=== PATIENT | male | born 1955 | race Caucasian/White ===

== ENCOUNTER → 2019-04-19 | Outpatient (CLI) | payer OTHER ==
[2019-04-19 11:49] LABS: HCT 37.8 % (39.0-53.0); HGB 13.3 gm/dL (13.0-17.5); MCH 29.8 pg (25.0-35.0); MCHC 35.3 g/dL (31.0-37.0); MCV 84.5 fL (80.0-100.0); Mean Platelet Volume 8.5; Platelet Count 213 k/uL (150-450); RBC 4.47 m/uL (4.30-5.90); RDW 14.2 % (11.5-15.5); WBC 9.1 k/uL (3.8-10.6)
[2019-04-19 12:01] LABS: Potassium 4.2 mmol/L (3.5-5.1)
== END | disposition home or self-care (01) ==
LOC: LABPAT 10:34
PROVIDERS: ATTEND Internal Medicine Interventional Cardiology
DX: Z01.812 Encounter for preprocedural laboratory examination (principal); I25.10 Atherosclerotic heart disease of native coronary artery without angina pectoris
CPT/HCPCS: 36415; 80051; 82565; 84520; 85027

== ENCOUNTER 2019-04-22 10:17 | Day surgery (SDC) | payer OTHER ==
[~2019-04-22 10:17] MED LIST: ALPRAZolam 0.25 MG TAB PO PRN; ALPRAZolam 0.5 MG TAB PO PRN; ASPIRIN 325 MG TAB PO ONE; ATORVASTATIN 80 MG TAB PO ONE; NITROGLYCERIN SL TABS 0.4 MG TAB SUBLINGUAL PRN; SODIUM CHLORIDE 0.9% 1,000 ML in EMPTY BAG 1 BAG IV ONE
[2019-04-22 10:53] LABS: Glucose,Whole Blood 207 mg/dL (75-99)
[2019-04-22] MEDS ORDERED: VERAPAMIL 2.5 MG/ML 2 ML AMP ONE (12:26)
[2019-04-22] MEDS ORDERED: LIDOCAINE 1% INJ 10MG/ML (20 ML MDV) ONE (12:26)
[2019-04-22] MEDS ORDERED: MIDAZOLAM (PF) 2 MG/2 ML VIAL IVP ONE (12:40)
[2019-04-22] MEDS ORDERED: LIDOCAINE 1% INJ 10MG/ML (20 ML MDV) SQ ONE (12:43)
[2019-04-22] MEDS: VERAPAMIL SYRINGE (5 MG/10 ML) INTRAARTER ONE ×2 (12:45→13:30)
[2019-04-22] MEDS ORDERED: HYDROmorphone 1 MG/ML 1 ML SYRINGE ONE (12:47)
[2019-04-22] MEDS ORDERED: BIVALIRUDIN 250 MG in SODIUM CHLORIDE 0.9% 50 ML IV ONE ×2 (12:48→13:18)
[2019-04-22] MEDS ORDERED: BIVALIRUDIN BOLUS 250 MG/50 ML IV ONE (12:48)
[2019-04-22] MEDS ORDERED: HYDROmorphone 1 MG/ML 1 ML SYRINGE IVP ONE (12:54)
[2019-04-22] MEDS ORDERED: CLOPIDOGREL 75 MG TAB ONE (12:58)
[2019-04-22] MEDS ORDERED: CLOPIDOGREL 75 MG TAB PO ONE (13:00)
[2019-04-22] MEDS ORDERED: IOPAMIDOL-370 125ML BTL INJ ONE (13:17)
[2019-04-22] MEDS ORDERED: NITROGLYCERIN 1000MCG/10ML SYRINGE INTRACORON ONE (13:28)
[2019-04-22] MEDS ORDERED: IOPAMIDOL-370 100ML BTL INJ ONE (13:30)
[2019-04-22] MEDS ORDERED: IBUPROFEN 600 MG TAB PO PRN (13:36)
[2019-04-22] MEDS ORDERED: ACETAMINOPHEN TAB 500 MG TAB PO PRN (13:36)
[2019-04-22] MEDS ORDERED: ZOLPIDEM 5 MG TAB PO PRN (13:37)
[2019-04-22] MEDS ORDERED: RX INFO: IV CONTRAST WAS GIVEN 1 EACH MISC MISCELLANE PRN (13:37)
[2019-04-22] MEDS ORDERED: ATROPINE SULFATE 0.1 MG/ML 10ML SYRINGE IV PRN (13:37)
[2019-04-22] MEDS ORDERED: MAG HYDROX/AL HYDROX/SIMETH 30 ML CUP PO PRN (13:37)
[2019-04-22] MEDS ORDERED: NITROGLYCERIN SL TABS 0.4 MG TAB SUBLINGUAL PRN (13:37)
[2019-04-22] MEDS ORDERED: SODIUM CHLORIDE 0.9% 1,000 ML IV SCH (13:45)
[2019-04-22] MEDS ORDERED: hydrALAZINE HCL 20 MG/ML 1 ML VIAL ONE (14:54)
[2019-04-22] MEDS ORDERED: hydrALAZINE HCL 20 MG/ML 1 ML VIAL IVP STA (14:56)
[2019-04-22 17:04] LABS: Glucose,Whole Blood 197 mg/dL (75-99)
[2019-04-22] MEDS: CARVEDILOL 12.5 MG TAB PO SCH (17:22)
[2019-04-22] MEDS: INSULIN ASPART (NovoLOG) 100 UNIT/ML VIAL SQ SCH (17:22)
[2019-04-22] MEDS: hydrALAZINE HCL 25 MG TAB PO SCH ×2 (19:34→23:12)
[2019-04-22 19:43] LABS: Glucose,Whole Blood 239 mg/dL (75-99)
--- NOTE | 2019-04-22 20:12 | PTCA ---
PERCUTANEOUSTRANS CORORONARY ANGIOGRAPHY DATE OF SERVICE: April 22, 2019 PERFORMING PHYSICIAN: Abhi Stephens MD, tenant coordinator. PROCEDURE PERFORMED: 1. Successful stenting of the mid RCA using 3.0 x 18 and 3.0 x 12 mm Xience drug- eluting stents, which were post dilated using 3.5 mm balloon with an excellent angiographic results and reduction of stenosis from 99% to 0%. 2. Successful stenting of the mid LAD using 3.25 x 15 mm Xience drug-eluting stent with an excellent angiographic results and reduction of stenosis from 99% to 0%. INDICATIONS: This is a pleasant 63-year-old gentleman with diabetes, hypertension, and dyslipidemia, who was experiencing shortness of breath and chest discomfort with exertion concerning for severe underlying coronary artery disease. He underwent an echocardiogram which revealed cardiomyopathy. Because of that, he underwent a heart catheterization and that revealed severe triple-vessel coronary artery disease. The patient referred and was seen by cardiothoracic surgeon who turned the patient high risk for surgery. Because of that, he was brought today to undergo PCI of the RCA and LAD. APPROACH: Right radial artery. COMPLICATION: None. LEVEL OF SEDATION: Moderate with sedation length of 53 minutes. PROCEDURE DESCRIPTION: After obtaining informed consent, the patient was brought to cardiac hatchery laborer. The right radial artery was cannulated using micropuncture technique, the micropuncture wire passed easily. Then I placed a 6-Malay sheath 11 cm in the right radial artery. After that, I did start anticoagulation using Angiomax. Subsequently I did engage the RCA using JR4 guide. I wired using a run-through wire. After that, I did PTCA ballooning of the RCA using 2.5 x 12 mm balloon before I deployed 3.0 x 18 mm Xience drug-eluting stent where the stent was positioned under fluoroscopy guidance and deployed under 14 atmospheres for 20 seconds. I post dilated the stent initially using 3.25 mm balloon and subsequently using 3.5 mm balloon. The following angiogram showed what seems to be each dissection at the distal edge of the stent. Because of that, I decided to cover that with a stent so I deployed another 3.5 x 12 mm Xience drug- eluting stent with about 2 mm overlap between the 2 stents. The following angiogram showed excellent angiographic results and the procedure was completed on the right coronary artery without any complication. Subsequently, I did engage the LAD using JL 3.5 guide. I did wire it using the same run-through wire. I did PTCA ballooning using 3.0 x 12 mm balloon before I deployed a 3.25 x 15 mm another Xience drug-eluting stent where the stent was positioned under fluoroscopy guidance and deployed under 12 atmospheres for 20 seconds. The following angiogram showed great angiographic results and the procedure was completed without any complication. POSTPROCEDURE MANAGEMENT: 1. Dual anti-platelet therapy. 2. Risk factors modifications. 3. Follow up with the patient. MMODL / IJN: [id number] /
[2019-04-22] MEDS ORDERED: ONDANSETRON 4 MG/2 ML VIAL IVP STA (20:43)
[2019-04-22] MEDS ORDERED: LISINOPRIL 20 MG TAB PO SCH (21:00)
[2019-04-22] MEDS: INSULIN DETEMIR (LEVEMIR) 100 UNIT/ML SYR SQ SCH (22:05)
[2019-04-23 06:15] LABS: Basophils % (A) 0 %; Eosinophils # (A) 0.1 k/uL (0-0.7); Eosinophils % (A) 1 %; HCT 39.4 % (39.0-53.0); HGB 13.7 gm/dL (13.0-17.5); Lymphocytes % (A) 17 %; MCH 29.2 pg (25.0-35.0); MCHC 34.7 g/dL (31.0-37.0); MCV 84.2 fL (80.0-100.0); Mean Platelet Volume 7.4; Monocytes # (A) 0.5 k/uL (0-1.0); Monocytes % (A) 4 %; Neutrophils # (A) 8.9 k/uL (1.3-7.7); Neutrophils % (A) 77 %; Platelet Count 238 k/uL (150-450); RBC 4.68 m/uL (4.30-5.90); WBC 11.6 k/uL (3.8-10.6)
[2019-04-23 06:21] LABS: African American GFR (CKD) >90 (>60 ml/min/1.73 sqM); Anion Gap 12 mmol/L; Blood Urea Nitrogen 16 mg/dL (9-20); Calcium 9.8 mg/dL (8.4-10.2); Carbon Dioxide 28 mmol/L (22-30); Chloride 97 mmol/L (98-107); Glucose 173 mg/dL (74-99); Potassium 3.9 mmol/L (3.5-5.1); Sodium 137 mmol/L (137-145)
[2019-04-23 06:40] LABS: Glucose,Whole Blood 169 mg/dL (75-99)
[2019-04-23] MEDS: INSULIN ASPART (NovoLOG) 100 UNIT/ML VIAL SQ SCH ×2 (07:15→12:13)
[2019-04-23] MEDS: CARVEDILOL 12.5 MG TAB PO SCH (07:15)
[2019-04-23] MEDS: INSULIN DETEMIR (LEVEMIR) 100 UNIT/ML SYR SQ SCH (07:15)
[2019-04-23] MEDS ORDERED: GLIMEPIRIDE 2 MG TAB PO SCH (07:30)
[2019-04-23 07:57] VITALS: TEMP 98.3
[2019-04-23] MEDS ORDERED: ISOSORBIDE MONONITRATE ER 30 MG TAB.ER.24H PO SCH (09:00)
[2019-04-23] MEDS ORDERED: ASPIRIN 81 MG PO SCH (09:00)
[2019-04-23] MEDS ORDERED: CLOPIDOGREL 75 MG TAB PO SCH (09:00)
[2019-04-23] MEDS ORDERED: amLODIPine 10 MG TAB PO SCH (09:00)
[2019-04-23] MEDS ORDERED: ATORVASTATIN 40 MG TAB PO SCH (09:00)
--- NOTE | 2019-04-23 09:32 | P.DS ---
Providers Date of admission: 04/22/2019 Expected date of discharge: 04/23/19 Attending physician: Abhi Stephens Consults: 04/22/19 13:37 Consult Physician Routine Consulting Provider: [facility] Consult Reason/Comments: Post Interventional patient Do you want consulting provider notified?: Already Contacted Primary care physician: [facility] Course: This is a pleasant 63-year-old gentleman who underwent yesterday successful balloon angioplasty and stenting of the right coronary artery as well as left anterior descending artery with an excellent angiographic results. The procedure was performed from right radial approach. On follow-up with him today, he is asymptomatic. He did not sleep well last night. The right radial artery is slightly tender but with a good pulse. The patient denies any chest pain or chest discomfort, shortness of breath, dizziness, heart racing, or syncope. He has been maintaining normal sinus mechanism. He is on dual antiplatelet therapy along with a statin. The patient is going to be discharged on dual antiplatelet therapy as well as high intensity statin and I will follow-up with the patient next week in the office Plan - Discharge Summary Discharge Rx Participant: No New Discharge Prescriptions: New Clopidogrel [Plavix] 75 mg PO DAILY #90 tab Continue Isosorbide Mononitrate ER [Imdur] 30 mg PO DAILY Atorvastatin [Lipitor] 40 mg PO DAILY Hydrochlorothiazide [Hydrodiuril] 25 mg PO 1200 Glimepiride [Amaryl] 2 mg PO AC-BRKFST amLODIPine [Norvasc] 10 mg PO QAM Lisinopril 40 mg PO HS Carvedilol [Coreg*] 12.5 mg PO BID Insulin Glargine,Hum.rec.anlog [Basaglar Kwikpen U-100] 15 unit SQ BID Insulin Aspart [NovoLOG Flexpen] 5 units SQ AC-TID Aspirin [Adult Low Dose Aspirin EC] 81 mg PO DAILY Acetaminophen Tab [Tylenol] 1,000 mg PO Q4HR PRN PRN Reason: Pain Ibuprofen 600 mg PO AC-TID PRN PRN Reason: Pain Discharge Medication List Aspirin [Adult Low Dose Aspirin EC] 81 mg PO DAILY 04/21/19 [History] Atorvastatin [Lipitor] 40 mg PO DAILY 04/21/19 [History] Carvedilol [Coreg*] 12.5 mg PO BID 04/21/19 [History] Glimepiride [Amaryl] 2 mg PO AC-BRKFST 04/21/19 [History] Hydrochlorothiazide [Hydrodiuril] 25 mg PO 1200 04/21/19 [History] Insulin Aspart [NovoLOG Flexpen] 5 units SQ AC-TID 04/21/19 [History] Insulin Glargine,Hum.rec.anlog [Basaglar Kwikpen U-100] 15 unit SQ BID 04/21/19 [History] Isosorbide Mononitrate ER [Imdur] 30 mg PO DAILY 04/21/19 [History] Lisinopril 40 mg PO HS 04/21/19 [History] amLODIPine [Norvasc] 10 mg PO QAM 04/21/19 [History] Acetaminophen Tab [Tylenol] 1,000 mg PO Q4HR PRN 04/22/19 [History] Ibuprofen 600 mg PO AC-TID PRN 04/22/19 [History] Clopidogrel [Plavix] 75 mg PO DAILY #90 tab 04/23/19 [Rx] Follow up Appointment(s)/Referral(s): Abhi Stephens MD [STAFF PHYSICIAN] - 04/29/19 4:30 pm (Sunday) Patient Instructions/Handouts: *Surgery [facility] - After Heart Catheterization - Back [facility] Instructions, Left Heart Catheterization (DC)
[2019-04-23] MEDS: hydrALAZINE HCL 25 MG TAB PO SCH (09:33)
[2019-04-23 10:32] VITALS: BP 141/79; PULSE 70; RESP 16
[2019-04-23 11:11] VITALS: BMI 36.3
[2019-04-23 11:45] LABS: Glucose,Whole Blood 182 mg/dL (75-99)
[2019-04-23] MEDS ORDERED: HYDROCHLOROTHIAZIDE 25 MG TAB PO SCH (12:00)
== END 2019-04-23 15:18 | disposition home or self-care (01) ==
LOC: CATHCVL 10:17 → 3SCARD 13:31 → CATHCVL 04-23 15:18
PROVIDERS: ATTEND Internal Medicine Interventional Cardiology
DX: I25.10 Atherosclerotic heart disease of native coronary artery without angina pectoris (principal); I10 Essential (primary) hypertension; E11.9 Type 2 diabetes mellitus without complications; E78.5 Hyperlipidemia, unspecified; F17.210 Nicotine dependence, cigarettes, uncomplicated; E66.3 Overweight; Z79.82 Long term (current) use of aspirin; Z79.4 Long term (current) use of insulin; Z79.899 Other long term (current) drug therapy; Z86.73 Personal history of transient ischemic attack (TIA), and cerebral infarction without residual deficits; Z68.37 Body mass index [BMI] 37.0-37.9, adult; Z82.49 Family history of ischemic heart disease and other diseases of the circulatory system
CPT/HCPCS: 80048; 85025; C9600; C1887 ×2; C1725 ×4; C1769; C1894; C1874; J0360; J2405; J2001; J1170; J0583; Q9967 ×2; J2250

== ENCOUNTER → 2021-02-24 | Outpatient (CLI) | payer OTHER ==
[2021-02-24 13:16] LABS: HCT 37.9 % (39.0-53.0); HGB 12.9 gm/dL (13.0-17.5); MCH 29.8 pg (25.0-35.0); MCV 87.4 fL (80.0-100.0); Platelet Count 250 k/uL (150-450); RBC 4.33 m/uL (4.30-5.90); RDW 13.2 % (11.5-15.5); WBC 10.3 k/uL (3.8-10.6)
[2021-02-24 13:51] LABS: African American GFR (CKD) >90 (>60 ml/min/1.73 sqM); Anion Gap 9 mmol/L; Blood Urea Nitrogen 22 mg/dL (9-20); Carbon Dioxide 27 mmol/L (22-30); Chloride 100 mmol/L (98-107); Non-African American GFR(CKD) 78 (>60 ml/min/1.73 sqM); Potassium 4.3 mmol/L (3.5-5.1); Sodium 136 mmol/L (137-145)
== END | disposition home or self-care (01) ==
LOC: LABPAT 12:21
PROVIDERS: ATTEND Internal Medicine Interventional Cardiology
DX: Z01.812 Encounter for preprocedural laboratory examination (principal); I25.10 Atherosclerotic heart disease of native coronary artery without angina pectoris
CPT/HCPCS: 36415; 80051; 82565; 84520; 85027

== ENCOUNTER 2021-03-01 09:31 | Day surgery (SDC) | payer MEDICARE, OTHER ==
[2021-02-28 10:09] VITALS: BMI 34.2
[~2021-03-01 09:31] MED LIST changes: -ASPIRIN 325 MG TAB PO ONE; +ASPIRIN 325 MG TAB PO STA; -ATORVASTATIN 80 MG TAB PO ONE; +HEPARIN SODIUM,PORCINE 10,000 UNIT in SODIUM CHLORIDE 0.9% 1,000 ML IRRIGATION PRN; +HEPARIN SODIUM,PORCINE 2,500 UNIT in SODIUM CHLORIDE 0.9% 250 ML IRRIGATION PRN; +SODIUM CHLORIDE 0.9% 1,000 ML IV ONE
[2021-03-01 10:01] LABS: Glucose,Whole Blood 191 mg/dL (75-99)
[2021-03-01] MEDS ORDERED: VERAPAMIL 2.5 MG/ML 2 ML AMP ONE (10:04)
[2021-03-01] MEDS ORDERED: HEPARIN SODIUM 1,000 UN/ML (10ML VL) ONE (10:04)
[2021-03-01] MEDS ORDERED: LIDOCAINE 1% INJ 10MG/ML (20 ML MDV) ONE (10:05)
[2021-03-01 10:07] VITALS: RESP 16; TEMP 98.8
[2021-03-01] MEDS ORDERED: MIDAZOLAM 2 MG/2 ML VIAL IV ONE (10:33)
[2021-03-01] MEDS ORDERED: LIDOCAINE 1% INJ 10MG/ML (20 ML MDV) SQ ONE (10:33)
[2021-03-01] MEDS: VERAPAMIL SYRINGE (5 MG/10 ML) INTRAARTER ONE ×2 (10:33→10:56)
[2021-03-01] MEDS ORDERED: HEPARIN SODIUM 1,000 UN/ML (10ML VL) IV ONE (10:40)
[2021-03-01] MEDS ORDERED: IOPAMIDOL-370 100ML BTL INJ ONE (10:57)
[2021-03-01] MEDS ORDERED: RX INFO: IV CONTRAST WAS GIVEN 1 EACH MISC MISCELLANE PRN (11:03)
[2021-03-01] MEDS ORDERED: SODIUM CHLORIDE 0.9% 1,000 ML IV SCH (11:15)
--- NOTE | 2021-03-01 12:01 | CC ---
CARDIAC CATHETERIZATION REPORT DATE: MARCH 01, 2021 PERFORMING PHYSICIAN: Abhi Stephens MD. PROCEDURE PERFORMED: 1. Selective right and left coronary angiogram. 2. Left heart catheterization. INDICATION: This is a 65-year-old gentleman with coronary artery disease and prior stenting of the RCA and LAD who was scheduled to undergo a hip surgery recently. Because he has a poor functional capacity he underwent myocardial perfusion imaging stress test and that revealed moderate area of reversibility involving the inferior/inferolateral wall of the LV as well as small reversibility involving the anterior wall of the LV. Because of that, a heart catheterization was advised. APPROACH: Right radial artery. COMPLICATION: None. LEVEL OF SEDATION: Moderate with sedation length of 25 minutes. PROCEDURE DESCRIPTION: After obtaining an informed consent, the patient was brought to the cardiac quality assurance qa lab technician. The right radial artery was cannulated using micropuncture technique, the micropuncture wire passed easily then I placed a 6-Colombian sheath at the right radial artery. I gave the patient 2 mg of verapamil IA and 6000 units of heparin IV. Selective right and left coronary angiogram performed using JR4 and JL4 catheters. Left heart catheterization was performed using 5-Colombian pigtail catheter. The procedure was completed without any complication. SELECTIVE CORONARY ANGIOGRAM: 1. The RCA is a large caliber vessel it is a dominant vessel. The RCA has a tubular lesion in the midportion appeared to be in the range of 70%. Proximally has a lesion appeared to be in the range of 60% to 70%. and distally another lesion appeared to be in the range of 50%. 2. The left main is angiographically normal. It bifurcates into LCX and LAD. 3. The LCX is a large caliber vessel it is a nondominant vessel. The LCX appeared to have mild diffuse disease. Distally appeared to be subtotally occluded. It gives rise into the first obtuse marginal branch which worked as ramus intermedius and has mild diffuse disease as well. 4. The LAD; the proximal LAD appeared to have mild disease only. It gives rise into a large diagonal branch which appeared to have mild disease only. The mid LAD has another tubular lesion appeared to be in-stent restenosis as well as de Latrell and seems to be in the range of 70%. The LAD distally appeared to have mild disease only. HEMODYNAMICS: The LVEDP was about 10 to 12 mmHg without significant gradient across aortic valve. CONCLUSION: 1. Severe 2 vessel CAD involving the RCA and LAD. 2. Normal LVEDP. 3. POSTPROCEDURE MANAGEMENT: 1. I advise maximize medical treatment at this point of time, includes at this point, including aggressive cholesterol control. 2. Possible PCI of both the RCA and LAD to be done after his hip surgery. If the surgery is going to be done and by epidural anesthesia. 3. This plan will be discussed with his orthopedic surgeon in detail. 4. Follow up with the patient. NOLAN / PATN: [id number] /
[2021-03-01 20:13] VITALS: BP 143/83; PULSE 72
== END 2021-03-01 16:00 | disposition home or self-care (01) ==
LOC: CATHCVL 09:31
PROVIDERS: ATTEND Internal Medicine Interventional Cardiology
DX: I25.10 Atherosclerotic heart disease of native coronary artery without angina pectoris (principal)
CPT/HCPCS: 93458; C1894; J2250; J2001; J1644; Q9967

== ENCOUNTER 2024-06-05 16:30 | Inpatient (IN) | payer BC, MEDICARE, OTHER ==
--- NOTE | 2024-06-05 16:58 | ED ---
Fever HPI - General Chief Complaint: Fever Stated Complaint: AMS Time Seen by Provider: 06/05/24 16:40 Source: EMS, RN notes reviewed Mode of arrival: EMS Limitations: no limitations - History of Present Illness Initial Comments: This is a 68-year-old male transported by EMS with history of diabetes and cardiac stents presenting with fever and altered mental status x 1 day. Patient's coming from [facility] and escorted by officer. EMS states patient was A&O x 1 and improved slightly after receiving IV fluid. EMS states patient mentioned some pain with urination. Patient endorses feeling weak and fatigued but otherwise denies pain. Patient denies history of blood clots or use of blood thinners. Patient denies urinary symptoms, cough, chest pain, dyspnea, abdominal pain, chills, dizziness. MD Complaint: fever, weakness Onset/Timin -: days(s) Maximum Temperature: 104 F Temperature Source: oral Associated Symptoms: other (Weakness, altered mental status) Treatments Prior to Arrival: none - Related Data Home Medications Medication Instructions Recorded Confirmed Aspirin [Adult Low Dose Aspirin EC] 81 mg PO DAILY 04/21/19 03/01/21 Atorvastatin [Lipitor] 40 mg PO DAILY 04/21/19 03/01/21 Glimepiride [Amaryl] 2 mg PO W/SUPPER 04/21/19 03/01/21 Insulin Glargine,Hum.rec.anlog 16 unit SQ BID 04/21/19 03/01/21 [Basaglar Kwikpen U-100] amLODIPine [Norvasc] 10 mg PO QAM 04/21/19 03/01/21 carvediloL [Coreg*] 12.5 mg PO BID 04/21/19 03/01/21 hydroCHLOROthiazide [Hydrodiuril] 25 mg PO HS 04/21/19 03/01/21 lisinopriL 40 mg PO HS 04/21/19 03/01/21 Acetaminophen Tab [Tylenol] 1,000 mg PO Q4HR PRN 04/22/19 03/01/21 Allergies Allergy/AdvReac Type Severity Reaction Status Date / Time No Known Allergies Allergy Verified 06/05/24 16:37 Review of Systems ROS Statement: Those systems with pertinent positive or pertinent negative responses have been documented in the HPI. ROS Other: All systems not noted in ROS Statement are negative. 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" History of Any Multi-Drug Resistant Organisms: None Reported Past Surgical History: Heart Catheterization With Stent Additional Past Surgical History / Comment(s): 3 cardiac stents, surgery on rt cornea Past Anesthesia/Blood Transfusion Reactions: Motion Sickness, Postoperative Nausea & Vomiting (PONV) Date of Last Stent Placement:: 04/2019 Past Psychological History: Depression Smoking Status: Former smoker - Past Family History Father Family Medical History: Cancer Mother Family Medical History: Cancer General Exam Limitations: no limitations General appearance: lethargic Head exam: Present: atraumatic, normocephalic, normal inspection Eye exam: Present: normal appearance, PERRL, EOMI. Absent: scleral icterus, conjunctival injection, periorbital swelling ENT exam: Present: normal exam, mucous membranes dry, TM's normal bilaterally Neck exam: Present: normal inspection. Absent: tenderness, meningismus, lymphadenopathy Respiratory exam: Present: normal lung sounds bilaterally. Absent: respiratory distress, wheezes, rales, rhonchi, stridor Cardiovascular Exam: Present: regular rate, normal rhythm, normal heart sounds. Absent: systolic murmur, diastolic murmur, rubs, gallop, clicks GI/Abdominal exam: Present: soft, tenderness (Positive left lower quadrant tenderness without guarding. Patient states he recently started iron supplements with concurrent constipation.), normal bowel sounds. Absent: distended, guarding, rebound, rigid Extremities exam: Present: normal inspection, full ROM, tenderness (Positive right lower extremity tenderness along calf. Right lower extremity is slightly edematous with pitting edema. Negative Homans' sign), normal capillary refill. Absent: pedal edema, joint swelling, calf tenderness Back exam: Present: normal inspection Neurological exam: Present: altered (Patient alert to verbal. ANO x 3, patient unaware of current year or day. Aware of name, place and president.), CN II-XII intact Psychiatric exam: Present: normal affect, normal mood Skin exam: Present: warm, dry, intact, normal color. Absent: rash Course Vital Signs 10/06/05/24 06/05/24 16:31 18:13 19:16 Temperature 103.2 F H 100.7 F H 102 F H Pulse Rate 79 86 Respiratory 18 18 Rate Blood Pressure 144/94 190/111 O2 Sat by Pulse 96 95 Oximetry 06/05/24 06/05/24 20:38 22:01 Temperature 99.6 F Pulse Rate 76 Respiratory 18 Rate Blood Pressure 170/85 O2 Sat by Pulse 96 Oximetry Medical Decision Making - Medical Decision Making Was pt. sent in by a medical professional or institution (, PA, FUSE CUTTER, urgent care, hospital, or [facility]...) When possible be specific @ -No Did you speak to anyone other than the patient for history (EMS, parent, family, police, friend...)? What history was obtained from this source @ -Yes. EMS states that patient was A&O x 2 with altered LOC Did you review nursing and triage notes (agree or disagree)? Why? @ -I reviewed and agree with nursing and triage notes Were old charts reviewed (outside hosp., previous admission, EMS record, old EKG, old radiological studies, urgent care reports/EKG's, [facility] records)? Report findings @ -No old charts were reviewed Differential Diagnosis (chest pain, altered mental status, abdominal pain women, abdominal pain men, vaginal bleeding, weakness, fever, dyspnea, syncope, headache, dizziness, GI bleed, back pain, seizure, CVA, palpatations, mental health, musculoskeletal)? @ -Differential Fever: Pneumonia, viral URI, endocarditis, myocarditis, pericarditis, otitis, sinusitis, peritonsillar Abscess, retropharyngeal Abscess, epiglottitis, peritonitis, appendicitis, Heather cystitis, diverticulitis, hepatitis, colitis, UTI, PID, TOA, pyelonephritis, prostatitis, epididymitis, meningitis, encephalitis, pulmonary embolism, CVA, thyroid storm, pancreatitis, adrenal crisis, cavernous sinus thrombosis, this is not meant to be an all-inclusive list. EKG interpreted by me (3pts min.). @ -Sinus rhythm with occasional runs of bigeminal PVCs. Negative ST changes or T wave inversion. Ventricular rate 84 bpm, CARMINA 179 ms, QRS duration 100 ms, QTc 404 ms. X-rays interpreted by me (1pt min.). @ -Chest x-ray revealed pneumonia of right lower lobe. CT interpreted by me (1pt min.). @ -None done U/S interpreted by me (1pt. min.). @ -None done What testing was considered but not performed or refused? (CT, X-rays, U/S, labs)? Why? @ -None What meds were considered but not given or refused? Why? @ -None Did you discuss the management of the patient with other professionals (elen osman i.e. , PA, FUSE CUTTER, lab, RT, psych nurse, social services director, scrap shear operator, teacher, customs and immigration officer, showcase trimmer)? Give summary @ -Spoke to Mireille Ott from [facility] who agreed to admit patient to inpatient after explanation of HPI and physical exam. Was smoking cessation discussed for >3mins.? @ -No Was critical care preformed (if so, how long)? @ -No Were there social determinants of health that impacted care today? How? (Homelessness, low income, unemployed, alcoholism, drug addiction, transportatio n, low edu. Level, literacy, decrease access to med. care, group home, rehab)? @ -No Was there de-escalation of care discussed even if they declined (Discuss DNR or withdrawal of care, Hospice)? DNR status @ -No What co-morbidities impacted this encounter? (DM, HTN, Smoking, COPD, CAD, Cancer, CVA, ARF, Chemo, Hep., AIDS, mental health diagnosis, sleep apnea, morbid obesity)? @ -None Was patient admitted / discharged? Hospital course, mention meds given and route, prescriptions, significant lab abnormalities, going to OR and other pertinent info. @ -Admitted. Lab work including blood cultures drawn and chest x-ray changed. Urine collected. IV fluid and Rocephin 2 g IV given after discovery of p neumonia. Patient's mental status improving afterwards. UTI also discovered azithromycin IV initiated. Admitted to inpatient for further care. Undiagnosed new problem with uncertain prognosis? @ -No Drug Therapy requiring intensive monitoring for toxicity (Heparin, Nitro, Insulin, Cardizem)? @ -No Were any procedures done? @ -No Diagnosis/symptom? @ -Pneumonia, UTI with altered mental status Acute, or Chronic, or Acute on Chronic? @ -Acute Uncomplicated (without systemic symptoms) or Complicated (systemic symptoms)? @ -Complicated Side effects of treatment? @ -No Exacerbation, Progression, or Severe Exacerbation? @ -No Poses a threat to life or bodily function? How? (Chest pain, USA, SC, pneumonia, PE, COPD, DKA, ARF, appy, cholecystitis, CVA, Diverticulitis, Homicidal, Suicidal, threat to staff... and all critical care pts) @ -Pneumonia - Lab Data Result diagrams: 06/05/24 17:00 06/05/24 17:00 Lab Results 06/05/24 06/05/24 06/05/24 Range/Units 17:00 17:00 17:00 WBC 15.3 H (3.8-10.6) k/uL RBC 4.05 L (4.30-5.90) m/uL Hgb 11.6 L (13.0-17.5) gm/dL Hct 35.2 L (39.0-53.0) % MCV 86.9 (80.0-100.0) fL MCH 28.6 (25.0-35.0) pg MCHC 32.9 (31.0-37.0) g/dL RDW 14.3 (11.5-15.5) % Plt Count 149 L (150-450) k/uL MPV 9.5 Neutrophils % 91 % Lymphocytes % 4 % Monocytes % 3 % Eosinophils % 1 % Basophils % 0 % Neutrophils # 13.9 H (1.3-7.7) k/uL Lymphocytes # 0.6 L (1.0-4.8) k/uL Monocytes # 0.5 (0-1.0) k/uL Eosinophils # 0.2 (0-0.7) k/uL Basophils # 0.0 (0-0.2) k/uL Sodium 139 (137-145) mmol/L Potassium 4.1 (3.5-5.1) mmol/L Chloride 105 (98-107) mmol/L Carbon Dioxide 24 (22-30) mmol/L Anion Gap 10 mmol/L BUN 28 H (9-20) mg/dL Creatinine 1.20 (0.66-1.25) mg/dL Est GFR (CKD-EPI)AfAm 72 (>60 ml/min/1.73 sqM) Est GFR (CKD-EPI)NonAf 62 (>60 ml/min/1.73 sqM) Glucose 159 H (74-99) mg/dL Plasma Lactic Acid Juan 1.7 (0.7-2.0) mmol/L Calcium 9.1 (8.4-10.2) mg/dL Magnesium (1.6-2.3) mg/dL Total Bilirubin 0.7 (0.2-1.3) mg/dL AST 25 (17-59) U/L ALT 20 (4-49) U/L Alkaline Phosphatase 74 (38-126) U/L Ammonia (<30) umol/L Troponin I (0.000-0.034) ng/mL Total Protein 6.7 (6.3-8.2) g/dL Albumin 3.8 (3.5-5.0) g/dL TSH (0.465-4.680) mIU/L Urine Color Urine Appearance (Clear) Urine pH (5.0-8.0) Ur Specific [place] (1.001-1.035) Urine Protein (Negative) Urine Glucose (UA) (Negative) Urine Ketones (Negative) Urine Blood (Negative) Urine Nitrite (Negative) Urine Bilirubin (Negative) Urine Urobilinogen (<2.0) mg/dL Ur Leukocyte Esterase (Negative) Urine RBC (0-5) /hpf Urine WBC (0-5) /hpf Urine WBC Clumps (None) /hpf Ur Squamous Epith Cells (0-4) /hpf Urine Mucus (None) /hpf Salicylates mg/dL Acetaminophen ug/mL Acetone, Qual Negative (Negative) Influenza Type A (PCR) (Not Detectd) Influenza Type B (PCR) (Not Detectd) RSV (PCR) (Not Detectd) SARS-CoV-2 (PCR) (Not Detectd) 06/05/24 06/05/24 06/05/24 Range/Units 17:00 17:00 17:00 WBC (3.8-10.6) k/uL RBC (4.30-5.90) m/uL Hgb (13.0-17.5) gm/dL Hct (39.0-53.0) % MCV (80.0-100.0) fL MCH (25.0-35.0) pg MCHC (31.0-37.0) g/dL RDW (11.5-15.5) % Plt Count (150-450) k/uL MPV Neutrophils % % Lymphocytes % % Monocytes % % Eosinophils % % Basophils % % Neutrophils # (1.3-7.7) k/uL Lymphocytes # (1.0-4.8) k/uL Monocytes # (0-1.0) k/uL Eosinophils # (0-0.7) k/uL Basophils # (0-0.2) k/uL Sodium (137-145) mmol/L Potassium (3.5-5.1) mmol/L Chloride (98-107) mmol/L Carbon Dioxide (22-30) mmol/L Anion Gap mmol/L BUN (9-20) mg/dL Creatinine (0.66-1.25) mg/dL Est GFR (CKD-EPI)AfAm (>60 ml/min/1.73 sqM) Est GFR (CKD-EPI)NonAf (>60 ml/min/1.73 sqM) Glucose (74-99) mg/dL Plasma Lactic Acid Juan (0.7-2.0) mmol/L Calcium (8.4-10.2) mg/dL Magnesium 1.6 (1.6-2.3) mg/dL Total Bilirubin (0.2-1.3) mg/dL AST (17-59) U/L ALT (4-49) U/L Alkaline Phosphatase (38-126) U/L Ammonia (<30) umol/L Troponin I 0.013 (0.000-0.034) ng/mL Total Protein (6.3-8.2) g/dL Albumin (3.5-5.0) g/dL TSH 0.868 (0.465-4.680) mIU/L Urine Color Urine Appearance (Clear) Urine pH (5.0-8.0) Ur Specific [place] (1.001-1.035) Urine Protein (Negative) Urine Glucose (UA) (Negative) Urine Ketones (Negative) Urine Blood (Negative) Urine Nitrite (Negative) Urine Bilirubin (Negative) Urine Urobilinogen (<2.0) mg/dL Ur Leukocyte Esterase (Negative) Urine RBC (0-5) /hpf Urine WBC (0-5) /hpf Urine WBC Clumps (None) /hpf Ur Squamous Epith Cells (0-4) /hpf Urine Mucus (None) /hpf Salicylates <1.0 mg/dL Acetaminophen <10.0 ug/mL Acetone, Qual (Negative) Influenza Type A (PCR) Not Detected (Not Detectd) Influenza Type B (PCR) Not Detected (Not Detectd) RSV (PCR) Not Detected (Not Detectd) SARS-CoV-2 (PCR) Not Detected (Not Detectd) 06/05/24 06/05/24 Range/Units 19:35 20:29 WBC (3.8-10.6) k/uL RBC (4.30-5.90) m/uL Hgb (13.0-17.5) gm/dL Hct (39.0-53.0) % MCV (80.0-100.0) fL MCH (25.0-35.0) pg MCHC (31.0-37.0) g/dL RDW (11.5-15.5) % Plt Count (150-450) k/uL MPV Neutrophils % % Lymphocytes % % Monocytes % % Eosinophils % % Basophils % % Neutrophils # (1.3-7.7) k/uL Lymphocytes # (1.0-4.8) k/uL Monocytes # (0-1.0) k/uL Eosinophils # (0-0.7) k/uL Basophils # (0-0.2) k/uL Sodium (137-145) mmol/L Potassium (3.5-5.1) mmol/L Chloride (98-107) mmol/L Carbon Dioxide (22-30) mmol/L Anion Gap mmol/L BUN (9-20) mg/dL Creatinine (0.66-1.25) mg/dL Est GFR (CKD-EPI)AfAm (>60 ml/min/1.73 sqM) Est GFR (CKD-EPI)NonAf (>60 ml/min/1.73 sqM) Glucose (74-99) mg/dL Plasma Lactic Acid Juan (0.7-2.0) mmol/L Calcium (8.4-10.2) mg/dL Magnesium (1.6-2.3) mg/dL Total Bilirubin (0.2-1.3) mg/dL AST (17-59) U/L ALT (4-49) U/L Alkaline Phosphatase (38-126) U/L Ammonia <9 (<30) umol/L Troponin I (0.000-0.034) ng/mL Total Protein (6.3-8.2) g/dL Albumin (3.5-5.0) g/dL TSH (0.465-4.680) mIU/L Urine Color Colorless Urine Appearance Cloudy (Clear) Urine pH 7.0 (5.0-8.0) Ur Specific [place] 1.008 (1.001-1.035) Urine Protein Trace H (Negative) Urine Glucose (UA) Negative (Negative) Urine Ketones Negative (Negative) Urine Blood Trace H (Negative) Urine Nitrite Negative (Negative) Urine Bilirubin Negative (Negative) Urine Urobilinogen <2.0 (<2.0) mg/dL Ur Leukocyte Esterase Large H (Negative) Urine RBC 18 H (0-5) /hpf Urine WBC >182 H (0-5) /hpf Urine WBC Clumps Rare H (None) /hpf Ur Squamous Epith Cells 2 (0-4) /hpf Urine Mucus Rare H (None) /hpf Salicylates mg/dL Acetaminophen ug/mL Acetone, Qual (Negative) Influenza Type A (PCR) (Not Detectd) Influenza Type B (PCR) (Not Detectd) RSV (PCR) (Not Detectd) SARS-CoV-2 (PCR) (Not Detectd) Disposition Clinical Impression: Pneumonia, UTI (urinary tract infection), Altered mental status Disposition: ADMITTED IP TO THIS [facility] Condition: Stable Is patient prescribed a controlled substance at d/c from ED?: No Referrals: Cory Harris MD [Primary Care Provider] - 1-2 days Time of Disposition: 22:28 Decision Date: 06/05/24 Decision Time: 22:28
[2024-06-05] MEDS: SODIUM CHLORIDE 0.9% 1,000 ML IV STA ×2 (17:04→18:46)
[2024-06-05 17:14] LABS: Basophils % (A) 0 %; Eosinophils # (A) 0.2 k/uL (0-0.7); Eosinophils % (A) 1 %; HCT 35.2 % (39.0-53.0); HGB 11.6 gm/dL (13.0-17.5); Lymphocytes # (A) 0.6 k/uL (1.0-4.8); Lymphocytes % (A) 4 %; MCH 28.6 pg (25.0-35.0); MCHC 32.9 g/dL (31.0-37.0); MCV 86.9 fL (80.0-100.0); Mean Platelet Volume 9.5; Monocytes # (A) 0.5 k/uL (0-1.0); Monocytes % (A) 3 %; Neutrophils # (A) 13.9 k/uL (1.3-7.7); Neutrophils % (A) 91 %; Platelet Count 149 k/uL (150-450); RBC 4.05 m/uL (4.30-5.90); RDW 14.3 % (11.5-15.5); WBC 15.3 k/uL (3.8-10.6)
[2024-06-05] MEDS: ACETAMINOPHEN TAB 325 MG TAB PO STA (17:15)
[2024-06-05 17:24] LABS: ALT 20 U/L (4-49); AST 25 U/L (17-59); African American GFR (CKD) 72 (>60 ml/min/1.73 sqM); Albumin 3.8 g/dL (3.5-5.0); Alkaline Phosphatase 74 U/L (38-126); Anion Gap 10 mmol/L; Blood Urea Nitrogen 28 mg/dL (9-20); Calcium 9.1 mg/dL (8.4-10.2); Carbon Dioxide 24 mmol/L (22-30); Chloride 105 mmol/L (98-107); Glucose 159 mg/dL (74-99); Non-African American GFR(CKD) 62 (>60 ml/min/1.73 sqM); Potassium 4.1 mmol/L (3.5-5.1); Sodium 139 mmol/L (137-145); Total Bilirubin 0.7 mg/dL (0.2-1.3); Total Protein 6.7 g/dL (6.3-8.2)
--- NOTE | 2024-06-05 18:27 | XR ---
EXAMINATION TYPE: XR chest 2V DATE OF EXAM: 06/05/2024 COMPARISON: None INDICATION: Fever nausea vomiting diarrhea TECHNIQUE: Frontal and lateral views of the chest are obtained. FINDINGS: The heart size is enlarged. Sternotomy wires are in the midline. The pulmonary vasculature is normal. Mild right lower lobe infiltrate is present. Correlate for pneumonia.. IMPRESSION: 1. Clinical correlation recommended for right lower lobe pneumonia. Follow-up recommended [facility], Workstation: [facility], 06/05/2024 6:25 PM
[2024-06-05 19:55] LABS: Appearance,Urine Cloudy (Clear); Bilirubin,Urine Negative (Negative); Blood,Urine Trace (Negative); Color,Urine Colorless; Glucose,Urine (UA) Negative (Negative); Ketones,Urine Negative (Negative); Leukocyte Esterase,Urine Large (Negative); Mucus,Urine Rare /hpf; Nitrite,Urine Negative (Negative); Protein,Urine Trace (Negative); RBC,Urine 18 /hpf (0-5); Specific Gravity,Urine 1.008 (1.001-1.035); Squamous Epithelial Cell,Urine 2 /hpf (0-4); Urobilinogen,Urine <2.0 mg/dL (<2.0); WBC,Urine >182 /hpf (0-5)
[2024-06-05 20:36] LABS: Acetaminophen <10.0 ug/mL; Salicylate <1.0 mg/dL
[2024-06-05] MEDS: MAGNESIUM SULFATE-D5W PMX 1 GM in DEXTROSE/WATER 1 100ML.BAG IVPB SCH (20:41)
[2024-06-05 20:54] LABS: Magnesium 1.6 mg/dL (1.6-2.3)
--- NOTE | 2024-06-05 21:47 | CT ---
EXAMINATION TYPE: CT brain wo con DATE OF EXAM: 06/05/2024 COMPARISON: None INDICATION: Altered mental status DLP: 1243.4 mGycm, Automated exposure control for dose reduction was used. CONTRAST: None CT of the brain is performed utilizing 3 mm thick sections through the posterior fossa and 3 mm thick sections through the remaining calvarium. Study is performed within 24 hours of arrival to the hosp ital. No abnormal hyperdensity is present to suggest an acute intracranial hemorrhage. No mass lesion is evident. No acute infarcts are evident. Minimal deep white matter hypodensity is present, likely on the basis of chronic white matter ischemic changes. Ventricles and sulci are appropriate for the patient age. Paranasal sinuses and mastoid air cells within the [id number] are clear. IMPRESSION: 1. No acute intracranial process. Follow up MRI can be performed as clinically indicated. 2. Mild deep white matter chronic appearing ischemic type changes. [facility], Workstation: [facility], 06/05/2024 9:45 PM
[2024-06-05] MEDS ORDERED: PNEUMONIA PROTOCOL UTILIZED 1 EACH MISC PO PRN (22:25)
[2024-06-05] MEDS: carvediloL 12.5 MG TAB PO SCH (23:27)
[2024-06-05] MEDS: AZITHROMYCIN 500 MG in SODIUM CHLORIDE 0.9% 250 ML IVPB STA (23:28)
[2024-06-06] MEDS ORDERED: ACETAMINOPHEN TAB 325 MG TAB PO PRN (02:45)
[2024-06-06] MEDS ORDERED: ZINC OXIDE PASTE (Z-GUARD) 1 APPLIC TOPICAL PRN (05:39)
[2024-06-06 07:04] LABS: Glucose,Whole Blood 140 mg/dL (70-110)
[2024-06-06] MEDS ORDERED: carvediloL 12.5 MG TAB PO SCH (07:30)
[2024-06-06] MEDS: INSULIN DETEMIR (LEVEMIR) 100 UNIT/ML SYR SQ SCH (08:32)
[2024-06-06] MEDS: INSULIN ASPART (NovoLOG) 100 UNIT/ML VIAL SQ SCH (09:55)
[2024-06-06] MEDS: amLODIPine 10 MG TAB PO SCH (10:00)
[2024-06-06] MEDS: ASPIRIN 81 MG PO SCH (10:00)
[2024-06-06] MEDS: ATORVASTATIN 40 MG TAB PO SCH (10:00)
[2024-06-06] MEDS: SODIUM CHLORIDE 0.9% 1,000 ML IV SCH (10:30)
[2024-06-06 12:21] LABS: Glucose,Whole Blood 122 mg/dL (70-110)
[2024-06-06 12:54] LABS: INR 1.2 (<1.2); Partial Thromboplastin Time 28.5 sec (22.0-30.0)
[2024-06-06 12:55] VITALS: BMI 29.5
[2024-06-06] MEDS ORDERED: BENZOCAINE/MENTHOL LOZENG 1 EACH LOZENGE MUCOUS MEM PRN (14:22)
[2024-06-06] MEDS ORDERED: guaiFENesin SYRUP 100MG/5ML 200 MG/10 ML CUP PO PRN (14:22)
[2024-06-06] MEDS ORDERED: IPRATROPIUM-ALBUTEROL 3 ML NEB INHALATION PRN (14:25)
--- NOTE | 2024-06-06 14:30 | P.HPIM ---
History of Present Illness H&P Date: 06/06/24 This is a pleasant 68-year-old male with medical history significant for diabetes mellitus type 2, coronary artery disease with prior cardiac stenting, acid reflux, hyperlipidemia, former smoker, depression. Patient is currently incarcerated was brought over from the custodial yesterday evening patient reports a 2-day history of fever cough and shortness of breath. He states that he is having some discomfort in his right chest wall with coughing. States the cough is wet but he is not able to bring up anything. Not having any nausea, vomiting or diarrhea. Chest x-ray does reveal a right lower lobe opacity concerning for pneumonia. Also had a brain CT completed last night secondary to an episode of altered mentation with no acute intracranial process there is mild deep white matter chronic appearing ischemic type changes. Initial blood work reveals a white blood cell count of 15.3, hemoglobin 11.6, platelet count of 149 sodium of 139 potassium 4.1, BUN of 28, creatinine of 1.20. Blood glucose was 159 lactic acid has been normal troponin level was normal TSH is normal. Urinalysis reve als trace protein trace blood large leukocyte esterase. Viral panel was negative for influenza RSV and COVID. Patient was admitted to the hospital started on empiric antibiotics with IV azithromycin, IV ceftriaxone. He remains short of breath today he is a Tmax of 100.4 night. He is on room air with oxygen saturations of 97%. REVIEW OF SYSTEMS: CONSTITUTIONAL: No fever, no malaise, no fatigue. HEENT: No recent visual problems or hearing problems. Denied any sore throat. CARDIOVASCULAR: No chest pain, orthopnea, PND, no palpitations, no syncope. PULMONARY: Reports shortness of breath, Reports cough, no hemoptysis. GASTROINTESTINAL: No diarrhea, no nausea, no vomiting, no abdominal pain. NEUROLOGICAL: No headaches, no weakness, no numbness. HEMATOLOGICAL: Denies any bleeding or petechiae. GENITOURINARY: Denies any burning micturition, frequency, or urgency. MUSCULOSKELETAL/RHEUMATOLOGICAL: Denies any joint pain, swelling, or any muscle pain. ENDOCRINE: Denies any polyuria or polydipsia. The rest of the 14-point review of systems is negative. PHYSICAL EXAMINATION: GENERAL: The patient is alert and oriented x3, not in any acute distress. Well developed, well nourished. HEENT: Pupils are round and equally reacting to light. EOMI. No scleral icterus. No conjunctival pallor. Normocephalic, atraumatic. No pharyngeal erythema. No thyromegaly. CARDIOVASCULAR: S1 and S2 present. No murmurs, rubs, or gallops. PULMONARY: Diminished ABDOMEN: Soft, nontender, nondistended, normoactive bowel sounds. No palpable organomegaly. MUSCULOSKELETAL: No joint swelling or deformity. EXTREMITIES: No cyanosis, clubbing, or pedal edema. NEUROLOGICAL: Gross neurological examination did not reveal any focal deficits. SKIN: No rashes. Assessment and plan -Acute right lower lobe pneumonia with sepsis present on admission patient remains febrile procalcitonin level has been ordered and pending continues on IV ceftriaxone and IV azithromycin. Patient will continue on DuoNebs scheduled and as needed. -Leuko-cytosis secondary to above -Mild MORGAN secondary to dehydration and infection with a BUN of 28 will hydrate the patient overnight and repeat BMP tomorrow -Diabetes mellitus type 2 continue with Accu-Cheks ACHS and sliding scale insulin home dose of long acting insulin has been resumed -GastroEsophageal reflux is continued on PPI when the hospital -Coronary artery disease with prior history of cardiac stenting and he is on aspirin 81 mg daily as well as Lipitor 40 mg daily -Hyperlipidemia -Hypertension continues on carvedilol as well as hydrochlorothiazide, lisinopril -Rheumatoid arthritis -History of depression not an active issue -Former smoker GI prophylaxis DVT prophylaxis The impression and plan of care has been dictated by Nurse Dayna Pra ctitioner as directed. Dr. Grabiel MD I have performed a history and physical examination and medical decision making of this patient, discussed the same with the dictator, and agree with the dictat ors assessment and plan as written, documented as a scribe. Based on total visit time, I have performed more than 50% of this visit. 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" History of Any Multi-Drug Resistant Organisms: None Reported Past Surgical History: Heart Catheterization With Stent, Joint Replacement Additional Past Surgical History / Comment(s): 3 cardiac stents, surgery on rt cornea Past Anesthesia/Blood Transfusion Reactions: Motion Sickness, Postoperative Nausea & Vomiting (PONV) Date of Last Stent Placement:: 04/2019 Past Psychological History: Depression Smoking Status: Former smoker Past Alcohol Use History: Rare Additional Past Alcohol Use History / Comment(s): quit smoking age 60, smoked on and off since age 16 Past Drug Use History: Marijuana - Past Family History Father Family Medical History: Cancer Mother Family Medical History: Cancer Medications and Allergies Home Medications Medication Instructions Recorded Confirmed Type Atorvastatin [Lipitor] 80 mg PO HS 04/21/19 06/06/24 History Acetaminophen Tab [Tylenol] 650 mg PO BID PRN 06/06/24 06/06/24 History Ferrous Sulfate [Feosol] 325 mg PO BID 06/06/24 06/06/24 History Insulin Glargine [Lantus Vial] 20 unit SQ HS 06/06/24 06/06/24 History Insulin Regular [humuLIN R] See Protocol SQ QID 06/06/24 06/06/24 History Metoprolol Tartrate [Lopressor] 50 mg PO BID 06/06/24 06/06/24 History lisinopriL [Zestril] 20 mg PO DAILY 06/06/24 06/06/24 History Allergies Allergy/AdvReac Type Severity Reaction Status Date / Time sulfamethoxazole Allergy Swelling Verified 06/06/24 09:50 [From Bactrim] trimethoprim [From Bactrim] Allergy Swelling Verified 06/06/24 09:50 Physical Exam Vitals: Vital Signs Temp Pulse Pulse Resp BP BP Pulse Ox 06/06/24 14:08 98.4 F 80 16 150/73 06/06/24 12:20 99.1 F 56 L 15 131/73 94 L 06/06/24 07:43 100.3 F H 61 16 143/68 97 06/06/24 07:01 100.3 F H 61 16 143/68 97 06/06/24 02:21 100 F H 67 16 151/76 96 06/06/24 00:10 74 16 159/85 97 06/05/24 22:01 99.6 F 06/05/24 20:38 76 18 170/85 96 06/05/24 19:16 102 F H 06/05/24 18:13 100.7 F H 86 18 190/111 95 06/05/24 16:31 103.2 F H 79 18 144/94 96 Intake and Output 06/05/24 06/06/24 06/06/24 22:59 06:59 14:59 Output Total 0 206 Balance 0 -206 Output: Urine 0 206 Other: Weight 104.326 kg 104.326 kg 104.326 kg Results CBC & Chem 7: 06/05/24 17:00 06/05/24 17:00 Labs: Abnormal Lab Results - Last 24 Hours (Table) 06/05/24 06/05/24 06/05/24 Range/Units 17:00 17:00 19:35 WBC 15.3 H (3.8-10.6) k/uL RBC 4.05 L (4.30-5.90) m/uL Hgb 11.6 L (13.0-17.5) gm/dL Hct 35.2 L (39.0-53.0) % Plt Count 149 L (150-450) k/uL Neutrophils # 13.9 H (1.3-7.7) k/uL Lymphocytes # 0.6 L (1.0-4.8) k/uL PT (10.0-12.5) sec INR (<1.2) BUN 28 H (9-20) mg/dL Glucose 159 H (74-99) mg/dL POC Glucose (mg/dL) (70-110) mg/dL Urine Protein Trace H (Negative) Urine Blood Trace H (Negative) Ur Leukocyte Esterase Large H (Negative) Urine RBC 18 H (0-5) /hpf Urine WBC >182 H (0-5) /hpf Urine WBC Clumps Rare H (None) /hpf Urine Mucus Rare H (None) /hpf 06/06/24 06/06/24 06/06/24 Range/Units 07:02 11:56 12:15 WBC (3.8-10.6) k/uL RBC (4.30-5.90) m/uL Hgb (13.0-17.5) gm/dL Hct (39.0-53.0) % Plt Count (150-450) k/uL Neutrophils # (1.3-7.7) k/uL Lymphocytes # (1.0-4.8) k/uL PT 13.0 H (10.0-12.5) sec INR 1.2 H (<1.2) BUN (9-20) mg/dL Glucose (74-99) mg/dL POC Glucose (mg/dL) 140 H 122 H (70-110) mg/dL Urine Protein (Negative) Urine Blood (Negative) Ur Leukocyte Esterase (Negative) Urine RBC (0-5) /hpf Urine WBC (0-5) /hpf Urine WBC Clumps (None) /hpf Urine Mucus (None) /hpf Thrombosis Risk Factor Assmnt - Choose All That Apply Any of the Below Risk Factors Present?: No Each Risk Factor Represents 2 Points: Age 61-74 years Other congenital or acquired thrombophilia - If yes, enter type in comment: No Thrombosis Risk Factor Assessment Total Risk Factor Score: 2 Thrombosis Risk Factor Assessment Level: Low Risk Assessment and Plan Time with Patient: Less than 30
[2024-06-06] MEDS: IPRATROPIUM-ALBUTEROL 3 ML NEB INHALATION SCH (15:11)
[2024-06-06 17:16] LABS: Glucose,Whole Blood 127 mg/dL (70-110)
[2024-06-06] MEDS: GLIMEPIRIDE 2 MG TAB PO SCH (18:18)
[2024-06-06 20:15] LABS: Glucose,Whole Blood 210 mg/dL (70-110)
[2024-06-06] MEDS: hydroCHLOROthiazide 25 MG TAB PO SCH (20:32)
[2024-06-06] MEDS: lisinopriL 20 MG TAB PO SCH (20:32)
[2024-06-07 07:04] LABS: Glucose,Whole Blood 76 mg/dL (70-110)
[2024-06-07] MEDS: ENOXAPARIN 40 MG/0.4 ML SYRINGE SQ SCH (07:51)
[2024-06-07] MEDS: PANTOPRAZOLE 40 MG TABLET PO SCH (07:52)
[2024-06-07 09:12] LABS: Basophils # (A) 0.04 X 10*3/uL (0.00-0.10); Basophils % (A) 0.3 %; Eosinophils # (A) 0.04 X 10*3/uL (0.04-0.35); Eosinophils % (A) 0.3 %; HGB 10.6 g/dL (13.0-17.0); Lymphocytes % (A) 9.2 %; MCH 28.1 pg (27.0-32.0); MCHC 32.1 g/dL (32.0-37.0); MCV 87.5 FL (80.0-97.0); Monocytes # (A) 0.88 X 10*3/uL (0.20-1.00); Monocytes % (A) 7.3 %; NRBC Per 100 WBC 0 X 10*3/uL (0.00-0.01); Neutrophils # (A) 9.89 X 10*3/uL (1.80-7.70); Neutrophils % (A) 82.3 %; Platelet Count 175 X 10*3/uL (140-440); RBC 3.77 X 10*6/uL (4.40-5.60); RDW 14.4 % (11.5-14.5); WBC 12.02 X 10*3/uL (4.50-10.00)
[2024-06-07] MEDS: AZITHROMYCIN 500 MG in SODIUM CHLORIDE 0.9% 250 ML IVPB SCH (09:17)
[2024-06-07 09:23] LABS: Blood Urea Nitrogen 36.6 mg/dL (9.0-27.0); Calcium 8.5 mg/dL (8.7-10.3); Carbon Dioxide 20.7 mmol/L (21.6-31.8); Chloride 104 mmol/L (96-109); Glucose 68 mg/dL (70-110); Magnesium 1.9 mg/dL (1.5-2.4); Potassium 3.5 mmol/L (3.5-5.5); Sodium 136 mmol/L (135-145)
[2024-06-07] MEDS: MAGNESIUM OXIDE 400 MG TAB PO SCH (10:25)
[2024-06-07] MEDS: POTASSIUM CHLORIDE ER 20 MEQ TAB.ER PO STA (10:25)
[2024-06-07 12:09] LABS: Glucose,Whole Blood 153 mg/dL (70-110)
--- NOTE | 2024-06-07 14:25 | P.PN ---
Subjective Progress Note Date: 06/07/24 This is a pleasant 68-year-old male with medical history significant for diabetes mellitus type 2, coronary artery disease with prior cardiac stenting, acid reflux, hyperlipidemia, former smoker, depression. Patient is currently incarcerated was brought over from the custodial yesterday evening patient reports a 2-day history of fever cough and shortness of breath. He states that he is having some discomfort in his right chest wall with coughing. States the cough is wet but he is not able to bring up anything. Not having any nausea, vomiting or diarrhea. Chest x-ray does reveal a right lower lobe opacity concerning for pneumonia. Also had a brain CT completed last night secondary to an episode of altered mentation with no acute intracranial process there is mild deep white matter chronic appearing ischemic type changes. Initial blood work reveals a white blood cell count of 15.3, hemoglobin 11.6, platelet count of 149 sodium of 139 potassium 4.1, BUN of 28, creatinine of 1.20. Blood glucose was 159 lactic acid has been normal troponin level was normal TSH is normal. Urinalysis reveals trace protein trace blood large leukocyte esterase. Viral panel was negative for influenza RSV and COVID. Patient was admitted to the hospital started on empiric antibiotics with IV azithromycin, IV ceftriaxone. He remains short of breath today he is a Tmax of 100.4 night. He is on room air with ox ygen saturations of 97%. 06/07/2024 Was evaluated in follow-up on the medical floor. Patient today fever 100.2 this morning. Acetone level was 4.16. Renal function is normal. His white blood cell count down to 12.02. He continues on a course of IV ceftriaxone and IV azithromycin. He is on room air. REVIEW OF SYSTEMS: CONSTITUTIONAL: No fever, no malaise, no fatigue. HEENT: No recent visual problems or hearing problems. Denied any sore throat. CARDIOVASCULAR: No chest pain, orthopnea, PND, no palpitations, no syncope. PULMONARY: Reports shortness of breath, Reports cough, no hemoptysis. GASTROINTESTINAL: No diarrhea, no nausea, no vomiting, no abdominal pain. NEUROLOGICAL: No headaches, no weakness, no numbness. PHYSICAL EXAMINATION: GENERAL: The patient is alert and oriented x3, not in any acute distress. Well developed, well nourished. HEENT: Pupils are round and equally reacting to light. EOMI. No scleral icterus. No conjunctival pallor. Normocephalic, atraumatic. No pharyngeal erythema. No thyromegaly. CARDIOVASCULAR: S1 and S2 present. No murmurs, rubs, or gallops. PULMONARY: Diminished ABDOMEN: Soft, nontender, nondistended, normoactive bowel sounds. No palpable organomegaly. MUSCULOSKELETAL: No joint swelling or deformity. EXTREMITIES: No cyanosis, clubbing, or pedal edema. NEUROLOGICAL: Gross neurological examination did not reveal any focal deficits. SKIN: No rashes. Assessment and plan -Acute right lower lobe pneumonia, bacterial with sepsis present on admission patient remains febrile continues on IV ceftriaxone and IV azithromycin. Pat ient will continue on DuoNebs scheduled and as needed. -Leuko-cytosis secondary to above -Mild MORGAN secondary to dehydration and infection with a BUN of 28 will hydrate the patient overnight and repeat BMP tomorrow -Diabetes mellitus type 2 continue with Accu-Cheks ACHS and sliding scale insulin home dose of long acting insulin has been resumed -GastroEsophageal reflux is continued on PPI when the hospital -Coronary artery disease with prior history of cardiac stenting and he is on aspirin 81 mg daily as well as Lipitor 40 mg daily -Hyperlipidemia -Hypertension continues on carvedilol as well as hydrochlorothiazide, lisinopril -Rheumatoid arthritis -History of depression not an active issue -Former smoker GI prophylaxis DVT prophylaxis Continue to have fever overnight as long as he is fever free over the next 24 hours plan will be to discharge tomorrow. The impression and plan of care has been dictated by Corinne Irving, Nurse Practitioner as directed. Dr. Grabiel MD I have performed a history and physical examination and medical decision making of this patient, discussed the same with the dictator, and agree with the dictators assessment and plan as written, documented as a scribe. Based on total visit time, I have performed more than 50% of this visit. Objective - Vital Signs Vital signs: Vital Signs Temp 98.0 F 06/07/24 12:05 Pulse 60 06/07/24 12:05 Resp 17 06/07/24 12:05 BP 140/80 06/07/24 12:05 Pulse Ox 90 L 06/07/24 12:05 FiO2 Intake & Output 06/06/24 06/07/24 06/07/24 18:59 06:59 18:59 Intake Total 237 1858 Output Total 956 1002 51 Balance -719 856 -51 Weight 104.326 kg Intake: Intake, IV Titration 900 Amount Sodium Chloride 0.9% 1, 900 000 ml @ 75 mls/hr IV . [id number] ON LICENSE OF [facility] Rx#:[id number] Oral 237 958 Output: Urine 956 1002 50 Stool 1 Other: Voiding Method Urinal Urinal Diaper Diaper # Voids 1 - Labs CBC & Chem 7: 06/07/24 03:00 06/07/24 03:00 Labs: Abnormal Lab Results - Last 24 Hours (Table) 06/06/24 06/06/24 06/06/24 Range/Units 11:56 17:15 20:14 WBC (4.50-10.00) X 10*3/uL RBC (4.40-5.60) X 10*6/uL Hgb (13.0-17.0) g/dL Hct (39.6-50.0) % MPV (9.5-12.2) FL Immature Gran # (0.00-0.04) X 10*3/uL Neutrophils # (1.80-7.70) X 10*3/uL Carbon Dioxide (21.6-31.8) mmol/L BUN (9.0-27.0) mg/dL Est GFR (CKD-EPI) (>=60) BUN/Creatinine Ratio (12.00-20.00) Ratio Glucose (70-110) mg/dL POC Glucose (mg/dL) 127 H 210 H (70-110) mg/dL Calcium (8.7-10.3) mg/dL Procalcitonin 4.16 H (0.02-0.50) ng/mL 06/07/24 06/07/24 06/07/24 Range/Units 03:00 03:00 12:03 WBC 12.02 H (4.50-10.00) X 10*3/uL RBC 3.77 L (4.40-5.60) X 10*6/uL Hgb 10.6 L (13.0-17.0) g/dL Hct 33.0 L (39.6-50.0) % MPV 13.0 H (9.5-12.2) FL Immature Gran # 0.07 H (0.00-0.04) X 10*3/uL Neutrophils # 9.89 H (1.80-7.70) X 10*3/uL Carbon Dioxide 20.7 L (21.6-31.8) mmol/L BUN 36.6 H (9.0-27.0) mg/dL Est GFR (CKD-EPI) 50 L (>=60) BUN/Creatinine Ratio 24.40 H (12.00-20.00) Ratio Glucose 68 L (70-110) mg/dL POC Glucose (mg/dL) 153 H (70-110) mg/dL Calcium 8.5 L (8.7-10.3) mg/dL Procalcitonin (0.02-0.50) ng/mL Microbiology - Last 24 Hours (Table) 06/05/24 17:42 Blood Culture - Preliminary Blood 06/05/24 19:35 Urine Culture - Final Urine,Voided Assessment and Plan Time with Patient: Less than 30
[2024-06-07 17:18] LABS: Glucose,Whole Blood 135 mg/dL (70-110)
[2024-06-07 19:51] LABS: Glucose,Whole Blood 185 mg/dL (70-110)
[2024-06-08 07:03] LABS: Glucose,Whole Blood 74 mg/dL (70-110)
[2024-06-08 07:31] VITALS: RESP 17
[2024-06-08 09:08] LABS: Basophils # (A) 0.04 X 10*3/uL (0.00-0.10); Basophils % (A) 0.4 %; Eosinophils # (A) 0.04 X 10*3/uL (0.04-0.35); Eosinophils % (A) 0.4 %; HCT 34.8 % (39.6-50.0); HGB 11.4 g/dL (13.0-17.0); Lymphocytes # (A) 1.32 X 10*3/uL (0.90-5.00); Lymphocytes % (A) 12.2 %; MCH 28.1 pg (27.0-32.0); MCHC 32.8 g/dL (32.0-37.0); MCV 85.7 FL (80.0-97.0); Mean Platelet Volume 12.5 FL (9.5-12.2); Monocytes # (A) 0.89 X 10*3/uL (0.20-1.00); Monocytes % (A) 8.2 %; NRBC Per 100 WBC 0 X 10*3/uL (0.00-0.01); Neutrophils # (A) 8.52 X 10*3/uL (1.80-7.70); Neutrophils % (A) 78.4 %; Platelet Count 172 X 10*3/uL (140-440); RBC 4.06 X 10*6/uL (4.40-5.60); WBC 10.85 X 10*3/uL (4.50-10.00)
[2024-06-08 09:11] LABS: BUN/Creat Ratio 20.93 Ratio (12.00-20.00); Blood Urea Nitrogen 29.3 mg/dL (9.0-27.0); Calcium 8.7 mg/dL (8.7-10.3); Carbon Dioxide 19.4 mmol/L (21.6-31.8); Chloride 105 mmol/L (96-109); Glucose 69 mg/dL (70-110); Magnesium 1.8 mg/dL (1.5-2.4); Potassium 3.4 mmol/L (3.5-5.5); Sodium 139 mmol/L (135-145)
--- NOTE | 2024-06-08 10:35 | XR ---
EXAMINATION TYPE: XR chest 1V portable DATE OF EXAM: 06/08/2024 10:25 AM COMPARISON: Chest radiographs from 06/05/2024 CLINICAL INDICATION: Male, 68 years old with history of hypoxia; PH[facility] TECHNIQUE: XR chest 1V portable Frontal view of the chest. FINDINGS: Lungs/Pleura: There is no evidence of pleural effusion, focal consolidation, or pneumothorax. Pulmonary vascularity: Pulmonary vascular congestion. Heart/mediastinum: Cardiomediastinal silhouette is enlarged. Musculoskeletal: No acute osseous pathology. Midline sternotomy wires are noted. Other findings: None IMPRESSION: Cardiomegaly and mild pulmonary vascular congestion. Correlate with BNP for congestive heart failure. [facility], , 06/08/2024 10:32 AM
[2024-06-08] MEDS: POTASSIUM CHLORIDE ER 20 MEQ TAB.ER PO SCH (10:36)
--- NOTE | 2024-06-08 11:49 | US ---
EXAMINATION TYPE: US venous doppler duplex LE RT DATE OF EXAM: 06/08/2024 11:21 AM COMPARISON: NONE CLINICAL INDICATION: Male, 68 years old with history of edema; Right leg swelling, Pain, Swelling TECHNIQUE: The lower extremity deep venous system is examined utilizing real time linear array sonog michael with graded compression, color doppler sonography, and spectral doppler. SIDE PERFORMED: Right FINDINGS: VESSELS IMAGED: Common Femoral Vein Deep Femoral Vein Greater Saphenous Vein * Femoral Vein Popliteal Vein Small Saphenous Vein * Proximal Calf Veins (* superficial vessels) Right Leg: Positive for DVT within the popliteal and proximal calf veins IMPRESSION: Positive deep vein thrombosis in the popliteal and proximal calf veins. A Hunt level critical message alert has been initiated for Adi Reno MD via the [employer] Critical Results System on 06/08/2024 11:46 AM. This message alert has been sent to Adi Reno MD via the preferences provided by the clinician for the receipt of Radiology Critical Findings. Crowdsourced Testing co. e ID [id number]. Findings communicated to Dr. Adi Reno MD on 06/08/2024 11:[address] Mak Subramanian. [facility], , 06/08/2024 11:47 AM
[2024-06-08] MEDS: FUROSEMIDE 10 MG/ML 4 ML VIAL IV STA (11:59)
[2024-06-08 12:02] LABS: Glucose,Whole Blood 161 mg/dL (70-110)
[2024-06-08] MEDS: Apixaban Initiation Dose--VTE 5 MG TAB PO SCH (12:42)
--- NOTE | 2024-06-08 13:33 | CT ---
EXAMINATION TYPE: CT chest angio for PE DATE OF EXAM: 06/08/2024 1:06 PM COMPARISON: 06/08/2024. CLINICAL INDICATION: Male, 68 years old with history of deep vein thrombosis, shortness of breath, co ncern for pulmonary embolus TECHNIQUE/CONTRAST: CTA scan of the thorax is performed with IV Contrast, patient injected with 100 mL of Isovue 370, MIP images are created and reviewed these are created on a separate workstation.. CT DLP: 564 mGycm, Automated exposure control for dose reduction was used. FINDINGS: Pulmonary Artery: There is no evidence for a filling defect within the pulmonary vasculature to sugge st acute pulmonary embolism. The pulmonary artery is of normal size. Lungs/Pleura: Trace bilateral pleural effusions.e consolidation like changes in the posterior aspect of the right upper lung possibly on basis of airspace disease versus underlying mass. The area of con cern partially extends around the bronchus series 4 image 45 r extends up to 3.2 cm x 1.2 cm. No evid ence of focal consolidation, pleural effusion or pneumothorax. Airway: Large airways are patent. Heart: There are is mildly enlarged for size. Coronary artery atherosclerosis. Vasculature: No eviden ce of aortic aneurysm. Mediastinum: No gross evidence of adenopathy. Musculoskeletal: No acute osseous abnormalities sternotomy wires are present. Soft Tissues/lymph nodes: Unremarkable. Lower neck: No significant findings. Upper Abdomen: No significant findings. IMPRESSION: 1. No evidence of pulmonary embolism. 2. Cardiomegaly with trace bilateral pleural effusions and evidence of pulmonary vascular congestion correlate with serum BNP. 3. Consolidation changes in the posterior aspect of the right upper lung which may represent infectio n. Underlying mass not excluded. Short-term follow-up in [address] chest with IV contrast is r ecommended to ensure resolution. Follow up recommendations for incidental pulmonary nodules, if there are any, are per [employer] [employer] or [employer] [place] [employer]. https://radiopaedia.org/articles/wfkzvtdpzc-ztyvhty-kipbzexja-qoumxs-[email or web address]-1?lang=us [facility], , 06/08/2024 1:31 PM
[2024-06-08 14:26] VITALS: BP 172/87; TEMP 98.4
[2024-06-08 17:24] VITALS: PULSE 62
[2024-06-08 17:43] LABS: Glucose,Whole Blood 111 mg/dL (70-110)
--- NOTE | 2024-06-10 13:35 | P.DS ---
Providers Date of admission: 06/05/24 22:00 Attending physician: Adi Reno Primary care physician: Cory Harris MD Hospital Course: Final Diagnosis -Acute right lower lobe pneumonia, bacterial with sepsis present on admission patient remains febrile continues on IV ceftriaxone and IV azithromycin. Patient will continue on DuoNebs scheduled and as needed. -Leuko-cytosis secondary to above -Positive for DVT within the popliteal and proximal calf veins -Mild MORGAN secondary to dehydration and infection with a BUN of 28 will hydrate the patient -Diabetes mellitus type 2 continue with Accu-Cheks ACHS and sliding scale insulin home dose of long acting insulin has been resumed -GastroEsophageal reflux is continued on PPI when the hospital -Coronary artery disease with prior history of cardiac stenting and he is on aspirin 81 mg daily as well as Lipitor 40 mg daily -Hyperlipidemia -Hypertension continues on carvedilol as well as hydrochlorothiazide, lisinopril -Rheumatoid arthritis -History of depression not an active issue -Former smoker Discharge Disposition Patient is stable for return to [facility]. To continue a course of oral Eliquis starting at 10 mg twice a day for the next week and then transition to 5 mg of Eliquis twice a day for the next 3 months at minimum. Patient should follow-up with his PCP Dr. Cory Harris on discharge for further recommendations beyond the 3 months of need for oral anticoagulation. Patient should follow-up with with hematology for the DVT as well. Patient has also been started on oral carvedilol and oral opium for improved blood pressure control. Continue on oral Ceftin 500 mg twice a day for the next 5 days. Blood work in 2 to 3 days. Hospital Course This is a pleasant 68-year-old male with medical history significant for diabetes mellitus type 2, coronary artery disease with prior cardiac stenting, acid reflux, hyperlipidemia, former smoker, depression. Patient is currently incarcerated was brought over from the care home yesterday evening patient reports a 2-day history of fever cough and shortness of breath. He states that he is having some discomfort in his right chest wall with coughing. States the cough is wet but he is not able to bring up anything. Not having any nausea, vomiting or diarrhea. Chest x-ray does reveal a right lower lobe opacity concerning for pneumonia. Also had a brain CT completed last night secondary to an episode of altered mentation with no acute intracranial process there is mild deep white matter chronic appearing ischemic type changes. Initial blood work reveals a white blood cell count of 15.3, hemoglobin 11.6, platelet count of 149 sodium of 139 potassium 4.1, BUN of 28, creatinine of 1.20. Blood glucose was 159 lactic acid has been normal troponin level was normal TSH is normal. Urinalysis reveals trace protein trace blood large leukocyte esterase. Viral panel was negative for influenza RSV and COVID. Patient was admitted to the hospital started on empiric antibiotics with IV azithromycin, IV ceftriaxone. He remains short of breath today he is a Tmax of 100.4 night. He is on room air with oxygen saturations of 97%. Patient has evidence of swelling in his right lower extremity he did have a venous Doppler completed which does reveal acute DVT of the right lower extremity. He was started on oral Eliquis for this CT angiography was completed which does not reveal any pulmonary embolism. His procalcitonin level was elevated at 4 suggestive of a bacterial pneumonia and will continue a course of antibiotic therapy with oral Ceftin on discharge. He is on room air he is not having any shortness of breath he has been up ambulatin g. He is stable for return to the [facility]. Please see medication reconciliation for a list of current medications. Thank you for allowing us to participate in the care of this patient. The impression and plan of care has been dictated by Corinne Irving, Nurse Practitioner as directed. Dr. Grabiel MD I have performed a history and physical examination and medical decision making of this patient, discussed the same with the dictator, and agree with the dictators assessment and plan as written, documented as a scribe. Based on total visit time, I have performed more than 50% of this visit. Patient Condition at Discharge: Fair Plan - Discharge Summary Discharge Rx Participant: Yes New Discharge Prescriptions: New carvediloL [Coreg*] 12.5 mg PO BID-W/MEALS #60 tab Apixaban [Eliquis Starter Pack (for VTE)] 5 - 10 mg PO DIRECTED 30 Days #1 each amLODIPine [Norvasc] 10 mg PO QAM #30 tab Pantoprazole [Protonix] 40 mg PO AC-BRKFST #30 tab cefUROXime axetiL [Ceftin] 500 mg PO BID 5 Days #10 tab Continue Atorvastatin [Lipitor] 80 mg PO HS Acetaminophen Tab [Tylenol] 650 mg PO BID PRN PRN Reason: Fever And/ Or Pain Metoprolol Tartrate [Lopressor] 50 mg PO BID lisinopriL [Zestril] 20 mg PO DAILY Insulin Glargine [Lantus Vial] 20 unit SQ HS Ferrous Sulfate [Iron (65 MG Elemental)] 325 mg PO BID Insulin Regular [humuLIN R] See Protocol SQ QID Discharge Medication List Atorvastatin [Lipitor] 80 mg PO HS 04/21/19 [History] Acetaminophen Tab [Tylenol] 650 mg PO BID PRN 06/06/24 [History] Ferrous Sulfate [Iron (65 MG Elemental)] 325 mg PO BID 06/06/24 [History] Insulin Glargine [Lantus Vial] 20 unit SQ HS 06/06/24 [History] Insulin Regular [humuLIN R] See Protocol SQ QID 06/06/24 [History] Metoprolol Tartrate [Lopressor] 50 mg PO BID 06/06/24 [History] lisinopriL [Zestril] 20 mg PO DAILY 06/06/24 [History] Apixaban [Eliquis Starter Pack (for VTE)] 5 - 10 mg PO DIRECTED 30 Days #1 each 06/08/24 [Rx] Pantoprazole [Protonix] 40 mg PO AC-BRKFST #30 tab 06/08/24 [Rx] amLODIPine [Norvasc] 10 mg PO QAM #30 tab 06/08/24 [Rx] carvediloL [Coreg*] 12.5 mg PO BID-W/MEALS #60 tab 06/08/24 [Rx] cefUROXime axetiL [Ceftin] 500 mg PO BID 5 Days #10 tab 06/08/24 [Rx] Follow up Appointment(s)/Referral(s): Cory Harris MD [Primary Care Provider] - 1-2 days Abhi Stephens MD [STAFF PHYSICIAN] - 2 Weeks Duncan Muñoz [STAFF PHYSICIAN] - 1 Week (Body Stylist for the DVT ) Ambulatory/Diagnostic Orders: Basic Metabolic Panel [LAB.AMB] Time Frame: 4 Days, Location: None Selected Complete Blood Count w/diff [LAB.AMB] Location: None Selected Patient Instructions/Handouts: Urinary Tract Infection in Men (DC), Pneumonia (DC) Activity/Diet/Wound Care/Special Instructions: Patient will need oral anticoagulation for 3 to 6 months for the acute DVT in the right leg. He has no evidence of blood clot in the lung. He has been started on oral eliquis 10 mg twice a day for the next 7 days after that he will need to continue on oral eliquis 5 mg twice a day for the next 3 to 6 months. Continue oral antibiotics with oral ceftin 500 mg twice a day for the next 5 days Continue with incentive spirometer 10 x an hour while awake Repeat blood work in 3 to 4 days to monitor electrolytes. Discharge Disposition: OTHER INSTITUTION NOT DEFINED
== END 2024-06-08 18:36 | DRG 871 ==
LOC: EC 16:30 → 5NMEDONC 22:00
PROVIDERS: ADMIT Hospitalist; ATTEND Hospitalist
DX: A41.9 Sepsis, unspecified organism (principal); J15.9 Unspecified bacterial pneumonia; N39.0 Urinary tract infection, site not specified; N17.9 Acute kidney failure, unspecified; I82.431 Acute embolism and thrombosis of right popliteal vein; E11.9 Type 2 diabetes mellitus without complications; E78.5 Hyperlipidemia, unspecified; E86.0 Dehydration; F32.A Depression, unspecified; I10 Essential (primary) hypertension; I25.10 Atherosclerotic heart disease of native coronary artery without angina pectoris; K21.9 Gastro-esophageal reflux disease without esophagitis; M06.9 Rheumatoid arthritis, unspecified; R65.20 Severe sepsis without septic shock; Z79.4 Long term (current) use of insulin; Z79.82 Long term (current) use of aspirin; Z79.84 Long term (current) use of oral hypoglycemic drugs; Z79.899 Other long term (current) drug therapy; Z87.891 Personal history of nicotine dependence; Z95.5 Presence of coronary angioplasty implant and graft
CPT/HCPCS: 36415; 70450; 71045; 71046; 71275; 80048; 80053; 80143; 80179; 81001; 82009; 82140; 83605; 83735; 83880; 84145; 84443; 84484; 85025; 85379; 85610; 85730; 87040; 87086; 87636; 93005; 94640; 94760; 96361; 96365; 99285

== ENCOUNTER 2024-10-23 12:43 | Inpatient (IN) | payer MEDICARE, OTHER ==
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
[2024-10-23 13:16] LABS: Glucose,Whole Blood 542 mg/dL (70-110)
[2024-10-23] MEDS: SODIUM CHLORIDE 0.9% 1,000 ML IV ONE (13:20)
[2024-10-23] MEDS: INSULIN REGULAR 100 UNIT/ML VIAL (IV) IV ONE (13:22)
[2024-10-23 13:40] LABS: Basophils % (A) 0 %; Eosinophils # (A) 0.1 k/uL (0-0.7); Eosinophils % (A) 0 %; HCT 35.6 % (39.0-53.0); HGB 12.6 gm/dL (13.0-17.5); Lymphocytes # (A) 0.6 k/uL (1.0-4.8); Lymphocytes % (A) 4 %; MCH 30.8 pg (25.0-35.0); MCHC 35.4 g/dL (31.0-37.0); MCV 87.2 fL (80.0-100.0); Mean Platelet Volume 9.8; Monocytes # (A) 0.6 k/uL (0-1.0); Monocytes % (A) 4 %; Neutrophils # (A) 14.1 k/uL (1.3-7.7); Neutrophils % (A) 91 %; Platelet Count 256 k/uL (150-450); RBC 4.08 m/uL (4.30-5.90); RDW 14.1 % (11.5-15.5); WBC 15.5 k/uL (3.8-10.6)
[2024-10-23 13:51] LABS: Appearance,Urine Turbid (Clear); Bacteria,Urine Rare /hpf; Bilirubin,Urine Negative (Negative); Blood,Urine Moderate (Negative); Glucose,Urine (UA) 4+ (Negative); Ketones,Urine Negative (Negative); Leukocyte Esterase,Urine Large (Negative); Nitrite,Urine Negative (Negative); PH, Urine 6.5 (5.0-8.0); Protein,Urine Trace (Negative); RBC,Urine 8 /hpf (0-5); Specific Gravity,Urine 1.013 (1.001-1.035); Squamous Epithelial Cell,Urine 2 /hpf (0-4); Urobilinogen,Urine <2.0 mg/dL (<2.0); WBC,Urine >182 /hpf (0-5)
[2024-10-23 13:54] LABS: Color,Urine Light yellow
[2024-10-23 13:57] LABS: ALT 16 U/L (4-49); AST 25 U/L (17-59); African American GFR (CKD) 50 (>60 ml/min/1.73 sqM); Albumin 3.9 g/dL (3.5-5.0); Alkaline Phosphatase 124 U/L (38-126); Anion Gap 15 mmol/L; Blood Urea Nitrogen 36 mg/dL (9-20); Calcium 9.2 mg/dL (8.4-10.2); Carbon Dioxide 22 mmol/L (22-30); Chloride 93 mmol/L (98-107); Creatine Kinase 164 U/L (55-170); Magnesium 1.5 mg/dL (1.6-2.3); Non-African American GFR(CKD) 43 (>60 ml/min/1.73 sqM); Potassium 4.1 mmol/L (3.5-5.1); Sodium 130 mmol/L (137-145); Total Bilirubin 0.9 mg/dL (0.2-1.3); Total Protein 6.9 g/dL (6.3-8.2)
[2024-10-23 14:07] LABS: Glucose 579 mg/dL (74-99)
--- NOTE | 2024-10-23 14:36 | XR ---
EXAMINATION TYPE: XR chest 1V DATE OF EXAM: 10/23/2024 2:17 PM COMPARISON: Chest radiographs from 06/08/2024 CLINICAL INDICATION: Male, 68 years old with history of fall, pain; [facility] TECHNIQUE: XR chest 1V Frontal view of the chest. FINDINGS: Lungs/Pleura: There is no evidence of pleural effusion, focal consolidation, or pneumothorax. Pulmonary vascularity: Unremarkable. Heart/mediastinum: Cardiomediastinal silhouette is unremarkable. Musculoskeletal: No acute osseous pathology. Midline sternotomy wires are noted. IMPRESSION: No acute cardiopulmonary disease/process. [facility], , 10/23/2024 2:34 PM
[2024-10-23 14:38] LABS: Glucose,Whole Blood 515 mg/dL (70-110)
--- NOTE | 2024-10-23 14:43 | XR ---
EXAMINATION TYPE: XR Hip RT and AP Pelvis DATE OF EXAM: 10/23/2024 2:17 PM COMPARISON: None CLINICAL INDICATION: Male, 68 years old with history of fall, pain, pain TECHNIQUE: XR Hip RT and AP Pelvis; hip was examined in the frontal and lateral projections and a AP pelvis. FINDINGS: Comminuted fracture trochanteric fracture of the right hip with extension below the lesser trochanter. Severe degeneration changes with joint space space narrowing osteophyte formation and pos sible cam deformity. Left hip arthroplasty appears intact. Multilevel degeneration changes of the spi ne. IMPRESSION: Comminuted intertrochanteric fracture of the right hip with varus deformity. [facility], , 10/23/2024 2:40 PM
[2024-10-23 14:52] LABS: VBG PH 7.3 (7.31-7.41)
[2024-10-23] MEDS ORDERED: ONDANSETRON 4 MG/2 ML VIAL IVP PRN (14:57)
[2024-10-23] MEDS: HYDROmorphone 0.5 MG/0.5 ML SYRINGE IVP PRN (15:45)
[2024-10-23 15:59] LABS: Glucose,Whole Blood 488 mg/dL (70-110)
[2024-10-23] MEDS: SODIUM CHLORIDE 0.9% 1,000 ML IV SCH (15:59)
[2024-10-23] MEDS: INSULIN REGULAR 100 UNIT in SODIUM CHLORIDE 0.9% 100 ML IV SCH (16:01)
[2024-10-23 18:09] LABS: Glucose,Whole Blood 405 mg/dL (70-110)
[2024-10-23 19:24] LABS: Glucose,Whole Blood 334 mg/dL (70-110)
[2024-10-23 20:27] LABS: Glucose,Whole Blood 276 mg/dL (70-110)
[2024-10-23] MEDS ORDERED: DEXTROSE 5%-0.45% NACL 1,000 ML IV SCH (21:00)
[2024-10-23 21:15] LABS: Potassium 3.8 mmol/L (3.5-5.1)
[2024-10-23 21:25] LABS: Glucose,Whole Blood 239 mg/dL (70-110)
[2024-10-23] MEDS: D5-0.45% NACL WITH KCL 20MEQ/L 1,000 ML IV SCH (21:46)
[2024-10-23 22:27] LABS: Glucose,Whole Blood 182 mg/dL (70-110)
[2024-10-23 23:23] LABS: Glucose,Whole Blood 124 mg/dL (70-110)
[2024-10-24 00:45] LABS: Glucose,Whole Blood 108 mg/dL (70-110)
[2024-10-24 01:55] LABS: Glucose,Whole Blood 135 mg/dL (70-110)
[2024-10-24 02:55] LABS: Glucose,Whole Blood 124 mg/dL (70-110)
[2024-10-24] MEDS: SODIUM CHLORIDE 0.9% 1,000 ML IV SCH (03:45)
[2024-10-24 04:46] LABS: Glucose,Whole Blood 235 mg/dL (70-110)
[2024-10-24 05:47] LABS: Glucose,Whole Blood 181 mg/dL (70-110)
[2024-10-24 06:34] LABS: Basophils % (A) 0 %; Eosinophils # (A) 0.1 k/uL (0-0.7); Eosinophils % (A) 1 %; HCT 30.2 % (39.0-53.0); HGB 10.2 gm/dL (13.0-17.5); Lymphocytes # (A) 2.5 k/uL (1.0-4.8); Lymphocytes % (A) 18 %; MCH 28.6 pg (25.0-35.0); MCHC 33.9 g/dL (31.0-37.0); MCV 84.4 fL (80.0-100.0); Mean Platelet Volume 11.6; Monocytes # (A) 0.7 k/uL (0-1.0); Monocytes % (A) 6 %; Neutrophils % (A) 74 %; Platelet Count 158 k/uL (150-450); Poikilocytosis Slight; RBC 3.58 m/uL (4.30-5.90); RDW 14.8 % (11.5-15.5); WBC 13.6 k/uL (3.8-10.6)
[2024-10-24 07:36] LABS: Glucose,Whole Blood 330 mg/dL (70-110)
[2024-10-24] MEDS: INSULIN LISPRO (HumaLOG) 100 UNIT/ML 10 mL VL SQ ONE (07:55)
[2024-10-24 08:49] LABS: VBG PH 7.38 (7.31-7.41)
[2024-10-24 08:49] LABS: Glucose,Whole Blood 206 mg/dL (70-110)
[2024-10-24 09:07] LABS: ALT 12 U/L (4-49); AST 18 U/L (17-59); African American GFR (CKD) 39 (>60 ml/min/1.73 sqM); Albumin 3.3 g/dL (3.5-5.0); Alkaline Phosphatase 96 U/L (38-126); Anion Gap 11 mmol/L; Blood Urea Nitrogen 45 mg/dL (9-20); Carbon Dioxide 22 mmol/L (22-30); Chloride 98 mmol/L (98-107); Glucose 183 mg/dL (74-99); Non-African American GFR(CKD) 33 (>60 ml/min/1.73 sqM); Potassium 3.8 mmol/L (3.5-5.1); Sodium 131 mmol/L (137-145); Total Bilirubin 0.7 mg/dL (0.2-1.3); Total Protein 6.2 g/dL (6.3-8.2)
[2024-10-24] MEDS ORDERED: DEXTROSE 50% SYRINGE 50 ML IVP PRN ×2 (09:19)
--- NOTE | 2024-10-24 09:41 | P.CNOR ---
History of Present Illness - [facility] Consult date: 10/24/24 Consult reason: fracture (Right hip fracture) History of present illness: Patient is a 68-year-old male who presented to [facility] ER yesterday after falling and injuring his right hip. Upon arrival to the hospital he had underwent multiple labs and imaging test, images demonstrated a right intertrochanteric femur fracture. The emergency room staff did discuss the case with my attending physician Dr. Mascorro, patient was admitted under internal medicine due to his medical comorbidities with our service placed on consult. Patient was evaluated in the emergency room, he was resting in his hospital bed. He admits to pain to the right hip with any type of movement. He has no other orthopedic complaints at this time. He has a previous left total hip arthroplasty that was done a few years ago he states. Patient is a relatively poor historian with regards to his past medical history. Apparently the patient apparently the patient was in group home for about 6 months, he states he has been out of group home for the last 3 months living in a hotel. Patient's blood sugars were noted to be significantly elevated upon arrival, he states that while in group home he was on insulin but since being out he has not been on any antidiabetic medications. 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" History of Any Multi-Drug Resistant Organisms: None Reported Past Surgical History: Heart Catheterization With Stent, Joint Replacement Additional Past Surgical History / Comment(s): 3 cardiac stents, surgery on rt cornea Past Anesthesia/Blood Transfusion Reactions: Motion Sickness, Postoperative Nausea & Vomiting (PONV) Date of Last Stent Placement:: 04/2019 Past Psychological History: Depression Smoking Status: Former smoker Past Alcohol Use History: Rare Past Drug Use History: Marijuana - Past Family History Father Family Medical History: Cancer Mother Family Medical History: Cancer Medications and Allergies Home Medications Medication Instructions Recorded Confirmed Type No Known Home Medications 10/23/24 10/23/24 History Allergies Allergy/AdvReac Type Severity Reaction Status Date / Time sulfamethoxazole Allergy Swelling Verified 10/23/24 15:37 [From Bactrim] trimethoprim [From Bactrim] Allergy Swelling Verified 10/23/24 15:37 Physical Examination Right lower extremity: Obvious shortening and external rotation of the extremity is noted compared to the contralateral side. Patient seems relatively unkept, the bilateral lower extremities demonstrate poor foot hygiene, he has a small wound on the big toe of the left foot. No open wounds were noted around the right hip region Tenderness with palpation of the proximal femur is noted, logroll maneuver reproduces significant pain Plantarflexion, dorsiflexion, EHL, FHL are intact. Knee and hip range of motion were difficult to assess due to pain reproduced to the right hip Logroll maneuver of the left lower extremity reproduces no pain Calf is soft, no tenderness with palpation Sensory exam to light touch is intact throughout the extremity Skin is warm to touch throughout the extremity Results - Labs Labs: Abnormal Lab Results - Last 24 Hours (Table) 10/23/24 10/23/24 10/23/24 Range/Units 00:00 13:12 13:19 WBC 15.5 H (3.8-10.6) k/uL RBC 4.08 L (4.30-5.90) m/uL Hgb 12.6 L (13.0-17.5) gm/dL Hct 35.6 L (39.0-53.0) % Neutrophils # 14.1 H (1.3-7.7) k/uL Lymphocytes # 0.6 L (1.0-4.8) k/uL VBG pH (7.31-7.41) Sodium (137-145) mmol/L Chloride (98-107) mmol/L Carbon Dioxide (22-30) mmol/L BUN (9-20) mg/dL Creatinine (0.66-1.25) mg/dL Glucose (74-99) mg/dL POC Glucose (mg/dL) 542 H* (70-110) mg/dL Plasma Lactic Acid Juan 2.3 H* (0.7-2.0) mmol/L Magnesium (1.6-2.3) mg/dL Total Protein (6.3-8.2) g/dL Albumin (3.5-5.0) g/dL Urine Protein (Negative) Urine Glucose (UA) (Negative) Urine Blood (Negative) Ur Leukocyte Esterase (Negative) Urine RBC (0-5) /hpf Urine WBC (0-5) /hpf Urine WBC Clumps (None) /hpf Urine Bacteria (None) /hpf 10/23/24 10/23/24 10/23/24 Range/Units 13:19 13:19 13:19 WBC (3.8-10.6) k/uL RBC (4.30-5.90) m/uL Hgb (13.0-17.5) gm/dL Hct (39.0-53.0) % Neutrophils # (1.3-7.7) k/uL Lymphocytes # (1.0-4.8) k/uL VBG pH (7.31-7.41) Sodium 130 L (137-145) mmol/L Chloride 93 L (98-107) mmol/L Carbon Dioxide (22-30) mmol/L BUN 36 H (9-20) mg/dL Creatinine 1.62 H (0.66-1.25) mg/dL Glucose 579 H* (74-99) mg/dL POC Glucose (mg/dL) (70-110) mg/dL Plasma Lactic Acid Juan 3.8 H* (0.7-2.0) mmol/L Magnesium 1.5 L (1.6-2.3) mg/dL Total Protein (6.3-8.2) g/dL Albumin (3.5-5.0) g/dL Urine Protein Trace H (Negative) Urine Glucose (UA) 4+ H (Negative) Urine Blood Moderate H (Negative) Ur Leukocyte Esterase Large H (Negative) Urine RBC 8 H (0-5) /hpf Urine WBC >182 H (0-5) /hpf Urine WBC Clumps Rare H (None) /hpf Urine Bacteria Rare H (None) /hpf 10/23/24 10/23/24 10/23/24 Range/Units 14:30 14:40 15:28 WBC (3.8-10.6) k/uL RBC (4.30-5.90) m/uL Hgb (13.0-17.5) gm/dL Hct (39.0-53.0) % Neutrophils # (1.3-7.7) k/uL Lymphocytes # (1.0-4.8) k/uL VBG pH 7.30 L (7.31-7.41) Sodium 131 L (137-145) mmol/L Chloride 94 L (98-107) mmol/L Carbon Dioxide 21 L (22-30) mmol/L BUN (9-20) mg/dL Creatinine (0.66-1.25) mg/dL Glucose (74-99) mg/dL POC Glucose (mg/dL) 515 H* (70-110) mg/dL Plasma Lactic Acid Juan (0.7-2.0) mmol/L Magnesium (1.6-2.3) mg/dL Total Protein (6.3-8.2) g/dL Albumin (3.5-5.0) g/dL Urine Protein (Negative) Urine Glucose (UA) (Negative) Urine Blood (Negative) Ur Leukocyte Esterase (Negative) Urine RBC (0-5) /hpf Urine WBC (0-5) /hpf Urine WBC Clumps (None) /hpf Urine Bacteria (None) /hpf 10/23/24 10/23/24 10/23/24 Range/Units 15:56 16:24 17:54 WBC (3.8-10.6) k/uL RBC (4.30-5.90) m/uL Hgb (13.0-17.5) gm/dL Hct (39.0-53.0) % Neutrophils # (1.3-7.7) k/uL Lymphocytes # (1.0-4.8) k/uL VBG pH (7.31-7.41) Sodium (137-145) mmol/L Chloride (98-107) mmol/L Carbon Dioxide (22-30) mmol/L BUN (9-20) mg/dL Creatinine (0.66-1.25) mg/dL Glucose (74-99) mg/dL POC Glucose (mg/dL) 488 H 405 H (70-110) mg/dL Plasma Lactic Acid Juan 3.5 H* (0.7-2.0) mmol/L Magnesium (1.6-2.3) mg/dL Total Protein (6.3-8.2) g/dL Albumin (3.5-5.0) g/dL Urine Protein (Negative) Urine Glucose (UA) (Negative) Urine Blood (Negative) Ur Leukocyte Esterase (Negative) Urine RBC (0-5) /hpf Urine WBC (0-5) /hpf Urine WBC Clumps (None) /hpf Urine Bacteria (None) /hpf 10/23/24 10/23/24 10/23/24 Range/Units 19:21 20:20 20:33 WBC (3.8-10.6) k/uL RBC (4.30-5.90) m/uL Hgb (13.0-17.5) gm/dL Hct (39.0-53.0) % Neutrophils # (1.3-7.7) k/uL Lymphocytes # (1.0-4.8) k/uL VBG pH (7.31-7.41) Sodium 132 L (137-145) mmol/L Chloride 96 L (98-107) mmol/L Carbon Dioxide (22-30) mmol/L BUN (9-20) mg/dL Creatinine (0.66-1.25) mg/dL Glucose (74-99) mg/dL POC Glucose (mg/dL) 334 H 276 H (70-110) mg/dL Plasma Lactic Acid Juan (0.7-2.0) mmol/L Magnesium (1.6-2.3) mg/dL Total Protein (6.3-8.2) g/dL Albumin (3.5-5.0) g/dL Urine Protein (Negative) Urine Glucose (UA) (Negative) Urine Blood (Negative) Ur Leukocyte Esterase (Negative) Urine RBC (0-5) /hpf Urine WBC (0-5) /hpf Urine WBC Clumps (None) /hpf Urine Bacteria (None) /hpf 10/23/24 10/23/24 10/23/24 Range/Units 20:33 21:24 22:25 WBC (3.8-10.6) k/uL RBC (4.30-5.90) m/uL Hgb (13.0-17.5) gm/dL Hct (39.0-53.0) % Neutrophils # (1.3-7.7) k/uL Lymphocytes # (1.0-4.8) k/uL VBG pH (7.31-7.41) Sodium (137-145) mmol/L Chloride (98-107) mmol/L Carbon Dioxide (22-30) mmol/L BUN (9-20) mg/dL Creatinine (0.66-1.25) mg/dL Glucose (74-99) mg/dL POC Glucose (mg/dL) 239 H 182 H (70-110) mg/dL Plasma Lactic Acid Juan 3.5 H* (0.7-2.0) mmol/L Magnesium (1.6-2.3) mg/dL Total Protein (6.3-8.2) g/dL Albumin (3.5-5.0) g/dL Urine Protein (Negative) Urine Glucose (UA) (Negative) Urine Blood (Negative) Ur Leukocyte Esterase (Negative) Urine RBC (0-5) /hpf Urine WBC (0-5) /hpf Urine WBC Clumps (None) /hpf Urine Bacteria (None) /hpf 10/23/24 10/24/24 10/24/24 Range/Units 23:22 01:53 02:53 WBC (3.8-10.6) k/uL RBC (4.30-5.90) m/uL Hgb (13.0-17.5) gm/dL Hct (39.0-53.0) % Neutrophils # (1.3-7.7) k/uL Lymphocytes # (1.0-4.8) k/uL VBG pH (7.31-7.41) Sodium (137-145) mmol/L Chloride (98-107) mmol/L Carbon Dioxide (22-30) mmol/L BUN (9-20) mg/dL Creatinine (0.66-1.25) mg/dL Glucose (74-99) mg/dL POC Glucose (mg/dL) 124 H 135 H 124 H (70-110) mg/dL Plasma Lactic Acid Juan (0.7-2.0) mmol/L Magnesium (1.6-2.3) mg/dL Total Protein (6.3-8.2) g/dL Albumin (3.5-5.0) g/dL Urine Protein (Negative) Urine Glucose (UA) (Negative) Urine Blood (Negative) Ur Leukocyte Esterase (Negative) Urine RBC (0-5) /hpf Urine WBC (0-5) /hpf Urine WBC Clumps (None) /hpf Urine Bacteria (None) /hpf 10/24/24 10/24/24 10/24/24 Range/Units 04:43 05:44 05:59 WBC 13.6 H (3.8-10.6) k/uL RBC 3.58 L (4.30-5.90) m/uL Hgb 10.2 L (13.0-17.5) gm/dL Hct 30.2 L (39.0-53.0) % Neutrophils # 10.0 H (1.3-7.7) k/uL Lymphocytes # (1.0-4.8) k/uL VBG pH (7.31-7.41) Sodium (137-145) mmol/L Chloride (98-107) mmol/L Carbon Dioxide (22-30) mmol/L BUN (9-20) mg/dL Creatinine (0.66-1.25) mg/dL Glucose (74-99) mg/dL POC Glucose (mg/dL) 235 H 181 H (70-110) mg/dL Plasma Lactic Acid Juan (0.7-2.0) mmol/L Magnesium (1.6-2.3) mg/dL Total Protein (6.3-8.2) g/dL Albumin (3.5-5.0) g/dL Urine Protein (Negative) Urine Glucose (UA) (Negative) Urine Blood (Negative) Ur Leukocyte Esterase (Negative) Urine RBC (0-5) /hpf Urine WBC (0-5) /hpf Urine WBC Clumps (None) /hpf Urine Bacteria (None) /hpf 10/24/24 10/24/24 10/24/24 Range/Units 07:31 08:39 08:47 WBC (3.8-10.6) k/uL RBC (4.30-5.90) m/uL Hgb (13.0-17.5) gm/dL Hct (39.0-53.0) % Neutrophils # (1.3-7.7) k/uL Lymphocytes # (1.0-4.8) k/uL VBG pH (7.31-7.41) Sodium 131 L (137-145) mmol/L Chloride (98-107) mmol/L Carbon Dioxide (22-30) mmol/L BUN 45 H (9-20) mg/dL Creatinine 2.00 H (0.66-1.25) mg/dL Glucose 183 H (74-99) mg/dL POC Glucose (mg/dL) 330 H 206 H (70-110) mg/dL Plasma Lactic Acid Juan (0.7-2.0) mmol/L Magnesium (1.6-2.3) mg/dL Total Protein 6.2 L (6.3-8.2) g/dL Albumin 3.3 L (3.5-5.0) g/dL Urine Protein (Negative) Urine Glucose (UA) (Negative) Urine Blood (Negative) Ur Leukocyte Esterase (Negative) Urine RBC (0-5) /hpf Urine WBC (0-5) /hpf Urine WBC Clumps (None) /hpf Urine Bacteria (None) /hpf H & H 10/23/24 10/24/24 Range/Units 13:19 05:59 Hgb 12.6 L 10.2 L (13.0-17.5) gm/dL Hct 35.6 L 30.2 L (39.0-53.0) % Result Diagrams: 10/24/24 05:59 10/24/24 08:39 - Diagnostic results Hip x-ray: report reviewed, image reviewed (Report and images were reviewed of the right hip and AP pelvis, right intertrochanteric femur fracture with subt rochanteric extension is noted. Patient demonstrates significant osteoarthritis to the right hip joint, this to include loss of joint space and subchondral sclerosis) Assessment and Plan Assessment: Displaced right intertrochanteric femur fracture with subtrochanteric extension Right hip osteoarthritis History of left total hip arthroplasty Uncontrolled diabetes Other medical comorbidities Plan: I was able to discuss the case, this to include physical exam findings and imaging studies my attending Dr. Mascorro. Patient has been tentatively scheduled for surgical intervention for 10/25/2024, more specifically a intramedullary nail of the right intertrochanteric femur fracture Risk and benefits of the procedure were discussed with the patient, this to include infection, blood loss, neurovascular injury, development of blood clots, and adequate healing of bone, pain and stiffness, need for further surgery. Patient is in good understanding. Consent will be obtained prior to procedure Internal medicine recommendations appreciated Pain control, oral and IV medication as needed DVT prophylaxis, will begin subcutaneous medication after surgery Urinary catheter placement Bed bath with Hibiclens recommended prior to surgery PT/OT recommendations after surgery Discharge planning, recommend placement for subacute rehab Further recommendations to follow Time with Patient: Less than 30
[2024-10-24 10:31] LABS: Glucose,Whole Blood 369 mg/dL (70-110)
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
[2024-10-24 12:06] LABS: Glucose,Whole Blood 359 mg/dL (70-110)
[2024-10-24] MEDS ORDERED: INSULIN LISPRO (HumaLOG) 100 UNIT/ML 10 mL VL SQ SCH (12:30)
[2024-10-24] MEDS: INSULIN LISPRO (HumaLOG) 100 UNIT/ML 10 mL VL SQ SCH ×2 (12:33→12:34)
[2024-10-24] MEDS: ATORVASTATIN 40 MG TAB PO SCH (12:37)
--- NOTE | 2024-10-24 12:42 | CDI ---
Documentation Clarification Form Date: 10/24/2024 12:09:38 PM From: Tejal Guerrero RN CCDS Phone: [phone] Admit Date: 10/23/2024 02:56:00 PM Patient Name: Martin Foreman Visit Number: [id number] Discharge Date: ATTENTION: The Clinical Documentation Specialists (CDI) and [facility] Coding Staff appreciate your assistance in clarifying documentation. Please respond to the clarification below the line at the bottom and electronically sign. The CDI & [facility] Coding staff will review the response and follow-up if needed. Please note: Queries are made part of the Legal Health Record. If you have any questions, please contact the author of this message via ITS. Doctor: Adi Reno A Right hip intertrochanteric fracture is documented, 10/24, HP. Additional clarification regarding the etiology of the fracture is requested. History/Risk Factors: 68 year old male presents to the ED after slipping and having a fall, currently staying at hotel and hasn't had medications in several months. Medical History: DM2, CAD, GERD, HLD, RA and Osteoarthritis. 10/24, HP. Clinical Indications: X-Ray Right Hip and AP Pelvis, 10/23: Comminuted fracture trochanteric fracture of the right hip with extension below the lesser trochanter. Severe degeneration changes with joint space narrowing osteophyte formation and possible cam deformity. Ortho consult, 10/24: Patient demonstrates significant osteoarthritis to the right hip joint, this to include loss of joint space and subchondral sclerosis. Displaced right intertrochanteric femur fracture with subtrochanteric extension, Right hip osteoarthritis. Treatment: Tentatively scheduled for surgical intervention for 10/25/2024, Ortho consult above Please clarify the etiology of the fracture, if known: [ ] Traumatic [ ] Osteoporosis [ ] Other (please specify): [ ] Unable to determine (Template Last Revised: October 2020) not mine MTDD
--- NOTE | 2024-10-24 13:25 | US ---
EXAMINATION TYPE: US renals and bladder DATE OF EXAM: 10/24/2024 COMPARISON: NONE CLINICAL INDICATION: Male, 68 years old with history of MORGAN; TECHNIQUE: Grayscale imaging of the bilateral kidneys and urinary bladder: FINDINGS: EXAM MEASUREMENTS: Right Kidney: 12.4x6.6x6.7 cm Left Kidney: 12.7x6.1x5.5 cm slightly limited exam due to pt unable to roll Right Kidney: Moderate amount of hydro seen Left Kidney: Moderate amount of hydro seen Bladder: ?Debris seen within posterior bladder Bilateral Jets seen: Yes IMPRESSION: Moderate bilateral hydronephrosis. Debris within the urinary bladder [facility], , 10/24/2024 1:23 PM
[2024-10-24] MEDS: INSULIN GLARGINE (LANTUS) 100 UNIT/ML SYR SQ SCH (13:34)
[2024-10-24 15:11] LABS: Chol/HDL Ratio 4.04 Ratio; LDL Cholesterol,Calculated 125.5 mg/dL (0.0-131.0)
[2024-10-24 15:34] LABS: African American GFR (CKD) 34 (>60 ml/min/1.73 sqM); Anion Gap 12 mmol/L; Blood Urea Nitrogen 51 mg/dL (9-20); Calcium 9.1 mg/dL (8.4-10.2); Carbon Dioxide 22 mmol/L (22-30); Chloride 97 mmol/L (98-107); Glucose 274 mg/dL (74-99); Non-African American GFR(CKD) 29 (>60 ml/min/1.73 sqM); Potassium 4.1 mmol/L (3.5-5.1); Sodium 131 mmol/L (137-145)
[2024-10-24 17:19] LABS: Glucose,Whole Blood 422 mg/dL (70-110)
[2024-10-24 20:35] LABS: Glucose,Whole Blood 293 mg/dL (70-110)
[2024-10-24] MEDS ORDERED: INSULIN GLARGINE (LANTUS) 100 UNIT/ML SYR SQ SCH (21:00)
[2024-10-25 06:22] LABS: Glucose,Whole Blood 272 mg/dL (70-110)
[2024-10-25] MEDS: INSULIN LISPRO (HumaLOG) 100 UNIT/ML 10 mL VL SQ SCH (06:34)
[2024-10-25 08:27] LABS: Glucose,Whole Blood 260 mg/dL (70-110)
[2024-10-25] MEDS: INSULIN LISPRO (HumaLOG) 100 UNIT/ML 10 mL VL SQ STA ×2 (08:36→11:22)
[2024-10-25] MEDS: IV FLUID CONTINUATION 400 ML IV ONE (08:42)
[2024-10-25] MEDS ORDERED: fentaNYL (PF) 50 MCG/ML 2 ML AMP ONE (09:07)
[2024-10-25] MEDS ORDERED: NEOSTIGMINE 1 MG/ML 10 ML VIAL ONE (09:07)
[2024-10-25] MEDS ORDERED: LIDOCAINE 1% INJ 10MG/ML (20 ML MDV) ONE (09:07)
[2024-10-25] MEDS ORDERED: GLYCOPYRROLATE 0.2 MG/ML 2 ML VIAL ONE (09:07)
[2024-10-25] MEDS ORDERED: HYDROmorphone (PF) 1 MG/ML ONE (09:07)
[2024-10-25] MEDS ORDERED: PHENYLEPHRINE 10 MG/ML VIAL ONE (09:07)
[2024-10-25] MEDS ORDERED: PROPOFOL 10 MG/ML 20 ML VIAL IV ONE (09:07)
[2024-10-25] MEDS ORDERED: ROCURONIUM 10 MG/ML (5 ML VIAL) IV ONE (09:07)
[2024-10-25] MEDS ORDERED: MIDAZOLAM 2 MG/2 ML VIAL ONE (09:07)
[2024-10-25] MEDS ORDERED: SUCCINYLCHOLINE CHLORIDE 200 MG/10 ML VIAL IV ONE (09:07)
[2024-10-25 10:01] LABS: Basophils # (A) 0.04 X 10*3/uL (0.00-0.10); Basophils % (A) 0.4 %; Eosinophils # (A) 0.05 X 10*3/uL (0.04-0.35); Eosinophils % (A) 0.5 %; HCT 30.2 % (39.6-50.0); HGB 9.9 g/dL (13.0-17.0); Lymphocytes # (A) 1.73 X 10*3/uL (0.90-5.00); Lymphocytes % (A) 15.7 %; MCH 28.9 pg (27.0-32.0); MCHC 32.8 g/dL (32.0-37.0); Mean Platelet Volume 12.1 FL (9.5-12.2); Monocytes % (A) 8.2 %; NRBC Per 100 WBC 0 X 10*3/uL (0.00-0.01); Neutrophils % (A) 74.6 %; Platelet Count 181 X 10*3/uL (140-440); RBC 3.43 X 10*6/uL (4.40-5.60); RDW 14.3 % (11.5-14.5); WBC 10.99 X 10*3/uL (4.50-10.00)
[2024-10-25] MEDS: LACTATED RINGERS 1,000 ML IV ONE (10:14)
[2024-10-25 10:25] LABS: ALT 10 U/L (10-49); AST 16 U/L (14-35); Albumin 3.4 g/dL (3.8-4.9); Albumin/Globulin Ratio 1.26 Ratio (1.60-3.17); Alkaline Phosphatase 98 U/L (41-126); BUN/Creat Ratio 23.17 Ratio (12.00-20.00); Blood Urea Nitrogen 53.3 mg/dL (9.0-27.0); Calcium 8.7 mg/dL (8.7-10.3); Carbon Dioxide 21.3 mmol/L (21.6-31.8); Chloride 101 mmol/L (96-109); Globulin 2.7 g/dL (1.6-3.3); Glucose 262 mg/dL (70-110); Potassium 4.4 mmol/L (3.5-5.5); Sodium 136 mmol/L (135-145); Total Bilirubin 0.2 mg/dL (0.3-1.2); Total Protein 6.1 g/dL (6.2-8.2)
--- NOTE | 2024-10-25 10:53 | P.OP ---
Date of Procedure: 10/25/24 Preoperative Diagnosis: Displaced four-part right intertrochanteric femur fracture Postoperative Diagnosis: Same Procedure(s) Performed: Trochanteric intramedullary nailing right intertrochanteric femur fracture Implants: [place] gamma 4 size 11 mm x 400 mm 125 degree trochanteric nail, 110 mm compression screw, 4.5 x 57.5 millimeter distal locking screw. Anesthesia: GETA Surgeon: Joey Mascorro Police Commissioner #1: Igor Pierre Estimated Blood Loss (ml): 100 Pathology: none sent Condition: stable Disposition: PACU Indications for Procedure: The patient is a 68-year-old male who presents after falling injuring his right hip. Upon evaluation he was noted to have a comminuted, displaced four-part right intertrochanteric femur fracture. A discussion of the risks and benefits of operative invention was made with the patient. He opted to proceed with surgery. Operative risks to include infection, neurovascular injury, development of blood clots, possible development of nonunion/malunion, possible hardware failure and possible need for subsequent procedures was discussed. Informed consent was obtained. Operative Findings: As below Description of Procedure: The patient was brought to the operating room, and after induction of general anesthesia was placed supine on the [place] table. The fracture was reduced with longitudinal traction and internal rotation. This was verified with fluoroscopy. The right lower extremity was prepped and draped in normal fashion. A 10 cm incision was then made starting at the level of the greater trochanter proximally. Skin was incised sharply. Subcutaneous tissues were divided sharply. Electrocautery was used for hemostasis. The gluteus tu fascia was split in line with the skin incision. Blunt dissection was then made down to the level of the greater trochanter. A starting awl was placed into medial tip of the greater trochanter and verified with fluoroscopy. A ball- tipped guidewire was then inserted down the femoral canal to the level of the distal femur. The canal was then reamed up to 12.5 mm. Approximately the intertrochanteric region was reamed up to 15.5 mm. An 11 mm x 400 mm trochanteric nail was gently inserted over the guidewire. The guidewire was then removed. A threaded guidepin was placed into the centercenter portion of the femoral head and neck with the aid of fluoroscopy. This was taken to within 5 mm of the articular surface. A triple reamer was used to a depth of 115 mm. A 115 mm compression screw was then inserted. This was taken to within 5 mm of the articular surface. This was verified with fluoroscopy. The insertion jig was then removed after setting the proximal locking screw. The distal dynamic locking screw was then placed utilizing freehand technique with the aid of fluoroscopy. Good purchase was obtained. The wounds were irrigated with normal saline. The fascia was closed with running 0 Vicryl suture. Subcutaneous tissues reapproximated interrupted 2-0 Vicryl sutures. The skin was reapproximated sully. A sterile dressing was then applied. The patient was awoken from general anesthesia and transferred to recovery room in stable condition. Blood loss was estimated at 100 cc. No complications were incurred. Sponge and needle counts were correct at the end the case. LORAINE Villatoro assisted during the major composes the case to include positioning, exposure, implantation, and closure.
--- NOTE | 2024-10-25 10:57 | FL ---
EXAMINATION TYPE: FL guidance operating room, XR Hip Complete RT DATE OF EXAM: 10/25/2024 CLINICAL INDICATION: Male, 68 years old with history of IT Nail-Rt Hip, TECHNIQUE: Fluoroscopy. Intraoperative 2 views right hip. COMPARISON: Pelvic and right hip x-ray 2 days earlier.. FINDINGS: Fluoroscopic guidance was provided during open reduction internal fixation procedure perfo rmed by orthopedic surgeon. A total of 89.4 seconds of fluoroscopic time was utilized during the pro cedure and 4 spot images was acquired. Intraoperative images acquired show placement of large intramedullary eveline and distal transverse fixat ing screw in the femur along with larger proximal fixating screw through the intertrochanteric fractu re of the right hip. Satisfactory alignment is seen on intraoperative images obtained. IMPRESSION: As Above. [facility], , 10/25/2024 10:55 AM
[2024-10-25 11:07] LABS: Glucose,Whole Blood 269 mg/dL (70-110)
[2024-10-25] MEDS: HYDROmorphone 0.5 MG/0.5 ML SYRINGE IVP PRN (11:21)
[2024-10-25 12:43] VITALS: BMI 30.3
[2024-10-25] MEDS ORDERED: MAGNESIUM HYDROXIDE 2,400 MG/30 ML CUP PO PRN (13:28)
[2024-10-25] MEDS ORDERED: NALOXONE 0.4 MG/ML 1 ML VIAL IV PRN (13:28)
[2024-10-25] MEDS: HYDROmorphone 1 MG/ML 1 ML SYRINGE IVP PRN (14:31)
[2024-10-25] MEDS: HEPARIN SODIUM,PORCINE 5,000 UNIT/ML 1 ML VIAL SQ SCH (14:54)
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
[2024-10-25 16:34] LABS: Glucose,Whole Blood 277 mg/dL (70-110)
[2024-10-25] MEDS: HYDROcodone/APAP 7.5-325MG 1 EACH TAB PO PRN (17:41)
[2024-10-25 20:08] LABS: Glucose,Whole Blood 341 mg/dL (70-110)
[2024-10-25] MEDS: INSULIN GLARGINE (LANTUS) 100 UNIT/ML SYR SQ SCH (21:23)
[2024-10-25] MEDS: SENNOSIDES-DOCUSATE SODIUM 1 EACH TAB PO SCH (21:23)
[2024-10-25] MEDS: HYDROcodone/APAP 5-325MG 1 EACH TAB PO PRN (21:27)
[2024-10-26 06:05] LABS: Glucose,Whole Blood 370 mg/dL (70-110)
[2024-10-26] MEDS: ENOXAPARIN 40 MG/0.4 ML SYRINGE SQ SCH (08:29)
[2024-10-26] MEDS: FAMOTIDINE 20 MG TAB PO SCH (08:29)
[2024-10-26 09:29] LABS: Basophils # (A) 0.05 X 10*3/uL (0.00-0.10); Basophils % (A) 0.6 %; Eosinophils # (A) 0.05 X 10*3/uL (0.04-0.35); Eosinophils % (A) 0.6 %; HCT 26.7 % (39.6-50.0); HGB 8.6 g/dL (13.0-17.0); Lymphocytes # (A) 1.29 X 10*3/uL (0.90-5.00); Lymphocytes % (A) 15.7 %; MCH 28.3 pg (27.0-32.0); MCHC 32.2 g/dL (32.0-37.0); MCV 87.8 FL (80.0-97.0); Monocytes # (A) 0.78 X 10*3/uL (0.20-1.00); Monocytes % (A) 9.5 %; NRBC Per 100 WBC 0 X 10*3/uL (0.00-0.01); Neutrophils # (A) 6.01 X 10*3/uL (1.80-7.70); Neutrophils % (A) 73.2 %; Platelet Count 174 X 10*3/uL (140-440); RBC 3.04 X 10*6/uL (4.40-5.60); RDW 14.4 % (11.5-14.5); WBC 8.21 X 10*3/uL (4.50-10.00)
[2024-10-26 09:42] LABS: BUN/Creat Ratio 22.48 Ratio (12.00-20.00); Blood Urea Nitrogen 47.2 mg/dL (9.0-27.0); Calcium 8.2 mg/dL (8.7-10.3); Carbon Dioxide 20.7 mmol/L (21.6-31.8); Chloride 102 mmol/L (96-109); Glucose 330 mg/dL (70-110); Potassium 4.2 mmol/L (3.5-5.5); Sodium 135 mmol/L (135-145)
[2024-10-26 11:28] LABS: Glucose,Whole Blood 330 mg/dL (70-110)
--- NOTE | 2024-10-26 12:13 | P.NPCON ---
History of Present Illness - Reason for Consult acute renal failure - History of Present Illness Patient is a 68-year-old male with history of coronary artery disease, type 2 diabetes, rheumatoid arthritis and psoriatic arthritis who is admitted to the hospital after a fall. Patient apparently slipped and fell and sustained right femoral fracture. He is status post trochanteric intramedullary nailing of right femur fracture on 10/25/2024. Serum creatinine was 1.6 on admission and increased to 2.3 yesterday. Today it is 2.1. It appears that patient had urine retention and indwelling Bojorquez catheter was placed. 3.8 L of urine charted for 24 hours. Also maintained on IV fluids. Previous creatinine 1.4 on 06/08/2024 Ultrasound on 10/24/2024 showed bilateral hydronephrosis. 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" History of Any Multi-Drug Resistant Organisms: None Reported Past Surgical History: Heart Catheterization With Stent, Joint Replacement Additional Past Surgical History / Comment(s): 3 cardiac stents, surgery on rt cornea Past Anesthesia/Blood Transfusion Reactions: Motion Sickness, Postoperative Nausea & Vomiting (PONV) Date of Last Stent Placement:: 04/2019 Past Psychological History: Depression Smoking Status: Former smoker Past Alcohol Use History: Rare Past Drug Use History: Marijuana - Past Family History Father Family Medical History: Cancer Mother Family Medical History: Cancer Medications and Allergies Home Medications Medication Instructions Recorded Confirmed Type No Known Home Medications 10/23/24 10/23/24 History Allergies Allergy/AdvReac Type Severity Reaction Status Date / Time sulfamethoxazole Allergy Swelling Verified 10/23/24 15:37 [From Bactrim] trimethoprim [From Bactrim] Allergy Swelling Verified 10/23/24 15:37 Physical Exam Vitals: Vital Signs Temp Pulse Pulse Resp BP Pulse Ox 10/26/24 08:30 93 18 10/26/24 07:26 98.4 F 93 18 150/89 94 L 10/26/24 01:27 98.7 F 102 H 15 144/90 92 L 10/25/24 20:00 15 10/25/24 19:35 97.8 F 93 15 126/68 94 L 10/25/24 12:15 83 14 116/74 97 Intake and Output 10/25/24 10/26/24 10/26/24 22:59 06:59 14:59 Output Total 952 209 0428 Balance -925 -950 -1625 Output: Urine 503 441 5316 Other: Voiding Method Indwelling Catheter Indwelling Catheter # Bowel Movements 0 Patient is awake, comfortable, no acute distress. Examination of the heart S1 and S2 Examination of the lungs bilateral breath sounds are heard Abdomen is soft nontender Examination of lower extremities shows chronic skin changes. No significant edema noted Results - Lab Results Most recent lab results Calcium 8.2 mg/dL (8.7-10.3) L 10/26/24 02:43 Magnesium 1.6 mg/dL (1.6-2.3) 10/24/24 08:39 10/26/24 02:43 10/26/24 02:43 Assessment and Plan Assessment: 1. Acute kidney injury, obstructive uropathy with bilateral hydronephrosis noted on ultrasound. Bojorquez catheter has been placed and good urine output note d. Patient is also maintained on IV fluids. UA shows trace protein moderate blood and WBCs more than 182 2. Pyuria with negative urine culture 3. Status post fall and right femur fracture status post surgery with nailing of right intertrochanteric femur fracture 4. Anemia with no active bleeding noted. Rule out iron deficiency Plan: Continue with Bojorquez catheter Continue with IV fluids Check iron profile Repeat labs in a.m. Avoid nephrotoxic agents Add Flomax Thank you for the consultation. We will continue to follow the patient with you during his hospitalization
--- NOTE | 2024-10-26 12:15 | P.PN ---
Subjective Progress Note Date: 10/26/24 Principal diagnosis: Displaced and comminuted right intertrochanteric femur fracture Patient was evaluated at bedside, he is resting in his hospital bed. He notes pain in the right extremity with movement. Pain medication he states is helping. Hemoglobin was noted to be decreased down to 8, he was started on ferrous sulfate 325 mg daily. He is being followed by other medical specialties at this time. He denies headaches, lightheadedness, chest pain or shortness of breath Objective - Vital Signs Vital signs: Vital Signs Temp 98.4 F 10/26/24 07:26 Pulse 93 10/26/24 08:30 Resp 18 10/26/24 08:30 BP 150/89 10/26/24 07:26 Pulse Ox 94 L 10/26/24 07:26 FiO2 Intake & Output 10/25/24 10/26/24 10/26/24 18:59 06:59 18:59 Intake Total 1200 Output Total 3025 950 1625 Balance -1825 -950 -1625 Weight 104.326 kg Intake: IV 1200 Output: Urine 2925 950 1625 Estimated Blood Loss 100 Other: Voiding Method External Catheter Indwelling Catheter Indwelling Catheter # Bowel Movements 0 - Exam Right lower extremity: Incision is clean, dry, and intact. The foam dressings are in good condition. There is minimal soft tissue swelling and ecchymosis surrounding the medial and lateral aspects of the incision. Calf is soft, no tenderness with palpation. Plantar flexion, dorsiflexion, EHL, FHL are intact. Sensory exam to light touch throughout the extremity is intact, dorsal pedis pulses 2+. - Labs CBC & Chem 7: 10/26/24 02:43 10/26/24 02:43 Labs: Abnormal Lab Results - Last 24 Hours (Table) 10/25/24 10/25/24 10/26/24 Range/Units 16:29 20:07 02:43 RBC 3.04 L (4.40-5.60) X 10*6/uL Hgb 8.6 L (13.0-17.0) g/dL Hct 26.7 L (39.6-50.0) % Carbon Dioxide (21.6-31.8) mmol/L Anion Gap (4.00-12.00) mmol/L BUN (9.0-27.0) mg/dL Creatinine (0.6-1.5) mg/dL Est GFR (CKD-EPI) (>=60) BUN/Creatinine Ratio (12.00-20.00) Ratio Glucose (70-110) mg/dL POC Glucose (mg/dL) 277 H 341 H (70-110) mg/dL Calcium (8.7-10.3) mg/dL 10/26/24 10/26/24 10/26/24 Range/Units 02:43 06:04 11:24 RBC (4.40-5.60) X 10*6/uL Hgb (13.0-17.0) g/dL Hct (39.6-50.0) % Carbon Dioxide 20.7 L (21.6-31.8) mmol/L Anion Gap 12.30 H (4.00-12.00) mmol/L BUN 47.2 H (9.0-27.0) mg/dL Creatinine 2.1 H (0.6-1.5) mg/dL Est GFR (CKD-EPI) 34 L (>=60) BUN/Creatinine Ratio 22.48 H (12.00-20.00) Ratio Glucose 330 H (70-110) mg/dL POC Glucose (mg/dL) 370 H 330 H (70-110) mg/dL Calcium 8.2 L (8.7-10.3) mg/dL Microbiology - Last 24 Hours (Table) 10/25/24 10:07 Gram Stain - Preliminary Other - Other 10/23/24 15:55 Blood Culture - Preliminary Blood Assessment and Plan Assessment: Postoperative day #1 status post IM nail right intertrochanteric femur fracture Acute blood loss anemia, expected surgical outcome Displaced right intertrochanteric femur fracture with subtrochanteric extension Right hip osteoarthritis History of left total hip arthroplasty Uncontrolled diabetes Other medical comorbidities Plan: Pain control, oral and IV medication as needed, scheduled stool softeners DVT prophylaxis, continue subcutaneous medication Encourage incentive spirometer Ice and elevate the extremity Ferrous sulfate 325 mg daily for anemia PT/OT recommendations Discharge planning: recommend placement for subacute rehab Time with Patient: Less than 30
[2024-10-26] MEDS: FERROUS SULFATE 325 MG TAB PO SCH (12:42)
[2024-10-26] MEDS: INSULIN LISPRO (HumaLOG) 100 UNIT/ML 10 mL VL SQ SCH (12:43)
[2024-10-26] MEDS: MULTIVITAMINS, THERA 1 EACH TAB PO SCH (12:43)
--- NOTE | 2024-10-26 13:33 | P.GSCN ---
History of Present Illness Consult date: 10/26/24 Reason for Consult: Hydronephrosis Requesting physician: Heraclio Prado History of present illness: The patient is a 68-year-old white male who presented to the ER on October 23, 2024 after falling and sustaining a right intratrochanteric femur fracture which was surgically repaired with a nail 10/25/2024. A renal ultrasound was obtained at admission, revealing bilateral moderate hydronephrosis along with bladder de bris. He is GFR is reduced compared to baseline. Urinalysis showed evidence of pyuria, but a urine culture showed mixed organisms consistent with genital lorenzo. A Bojorquez catheter was placed at the time of surgery yesterday and remains in place, draining clear yellow urine. The patient states that his urinary stream prior to admission was somewhat weak. He voided 3-4 times daily, and reports nocturia x 2-3. He experiences occasional dysuria but denies gross hematuria. He has been treated for UTIs in the past. 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" History of Any Multi-Drug Resistant Organisms: None Reported Past Surgical History: Heart Catheterization With Stent, Joint Replacement Additional Past Surgical History / Comment(s): 3 cardiac stents, surgery on rt cornea Past Anesthesia/Blood Transfusion Reactions: Motion Sickness, Postoperative Nausea & Vomiting (PONV) Date of Last Stent Placement:: 04/2019 Past Psychological History: Depression Smoking Status: Former smoker Past Alcohol Use History: Rare Past Drug Use History: Marijuana - Past Family History Father Family Medical History: Cancer Mother Family Medical History: Cancer Medications and Allergies Home Medications Medication Instructions Recorded Confirmed Type No Known Home Medications 10/23/24 10/23/24 History Allergies Allergy/AdvReac Type Severity Reaction Status Date / Time sulfamethoxazole Allergy Swelling Verified 10/23/24 15:37 [From Bactrim] trimethoprim [From Bactrim] Allergy Swelling Verified 10/23/24 15:37 Surgical - Exam Vital Signs Temp Pulse Resp BP Pulse Ox 97.7 F 87 18 173/101 99 10/23/24 12:46 10/23/24 12:46 10/23/24 12:46 10/23/24 12:46 10/23/24 12:46 - General well developed, well nourished, no distress - Respiratory normal respiratory effort - Abdomen Abdomen: soft, non tender, no guarding, no rigid, no rebound - Genitourinary normal penis with no external lesions, testicles non-tender - Rectum Rectum: normal sphincter tone, no masses, other (Prostate moderately enlarged but smooth) - Psychiatric oriented to time, oriented to person, oriented to place, speech is normal, memory intact Results - Labs 10/26/24 02:43 10/26/24 02:43 Abnormal Lab Results - Last 24 Hours (Table) 10/25/24 10/25/24 10/26/24 Range/Units 16:29 20:07 02:43 RBC 3.04 L (4.40-5.60) X 10*6/uL Hgb 8.6 L (13.0-17.0) g/dL Hct 26.7 L (39.6-50.0) % Carbon Dioxide (21.6-31.8) mmol/L Anion Gap (4.00-12.00) mmol/L BUN (9.0-27.0) mg/dL Creatinine (0.6-1.5) mg/dL Est GFR (CKD-EPI) (>=60) BUN/Creatinine Ratio (12.00-20.00) Ratio Glucose (70-110) mg/dL POC Glucose (mg/dL) 277 H 341 H (70-110) mg/dL Calcium (8.7-10.3) mg/dL 10/26/24 10/26/24 10/26/24 Range/Units 02:43 06:04 11:24 RBC (4.40-5.60) X 10*6/uL Hgb (13.0-17.0) g/dL Hct (39.6-50.0) % Carbon Dioxide 20.7 L (21.6-31.8) mmol/L Anion Gap 12.30 H (4.00-12.00) mmol/L BUN 47.2 H (9.0-27.0) mg/dL Creatinine 2.1 H (0.6-1.5) mg/dL Est GFR (CKD-EPI) 34 L (>=60) BUN/Creatinine Ratio 22.48 H (12.00-20.00) Ratio Glucose 330 H (70-110) mg/dL POC Glucose (mg/dL) 370 H 330 H (70-110) mg/dL Calcium 8.2 L (8.7-10.3) mg/dL Microbiology - Last 24 Hours (Table) 10/25/24 10:07 Gram Stain - Preliminary Other - Other 10/23/24 15:55 Blood Culture - Preliminary Blood Diabetes panel 10/26/24 Range/Units 02:43 Sodium 135 (135-145) mmol/L Potassium 4.2 (3.5-5.5) mmol/L Chloride 102 (96-109) mmol/L Carbon Dioxide 20.7 L (21.6-31.8) mmol/L BUN 47.2 H (9.0-27.0) mg/dL Creatinine 2.1 H (0.6-1.5) mg/dL Glucose 330 H (70-110) mg/dL Calcium 8.2 L (8.7-10.3) mg/dL Calcium panel 10/26/24 Range/Units 02:43 Calcium 8.2 L (8.7-10.3) mg/dL Pituitary panel 10/26/24 Range/Units 02:43 Sodium 135 (135-145) mmol/L Potassium 4.2 (3.5-5.5) mmol/L Chloride 102 (96-109) mmol/L Carbon Dioxide 20.7 L (21.6-31.8) mmol/L BUN 47.2 H (9.0-27.0) mg/dL Creatinine 2.1 H (0.6-1.5) mg/dL Glucose 330 H (70-110) mg/dL Calcium 8.2 L (8.7-10.3) mg/dL Adrenal panel 10/26/24 Range/Units 02:43 Sodium 135 (135-145) mmol/L Potassium 4.2 (3.5-5.5) mmol/L Chloride 102 (96-109) mmol/L Carbon Dioxide 20.7 L (21.6-31.8) mmol/L BUN 47.2 H (9.0-27.0) mg/dL Creatinine 2.1 H (0.6-1.5) mg/dL Glucose 330 H (70-110) mg/dL Calcium 8.2 L (8.7-10.3) mg/dL - Imaging US - kidney/bladder: report reviewed Assessment and Plan (1) Unspecified hydronephrosis Current Visit: Yes Status: Acute Code(s): N13.30 - UNSPECIFIED HYDRONEPHROSIS SNOMED Code(s): 00490505 Plan: The cause of the patient's hydronephrosis is indeterminate at this time. Renal ultrasound will be repeated tomorrow with the Bojorquez catheter in place, to determine whether the hydronephrosis has resolved with Bojorquez catheter drainage. If the hydronephrosis persists, CT scan will be obtained for further evaluation. Time with Patient: Greater than 30
[2024-10-26 13:51] LABS: % Iron Saturation 7.45 (15.00-50.00)
[2024-10-26 16:41] LABS: Glucose,Whole Blood 295 mg/dL (70-110)
[2024-10-26] MEDS: TAMSULOSIN 0.4 MG CAP.ER.24H PO SCH (17:29)
[2024-10-26 19:56] LABS: Glucose,Whole Blood 294 mg/dL (70-110)
[2024-10-26] MEDS: INSULIN GLARGINE (LANTUS) 100 UNIT/ML SYR SQ SCH (20:36)
[2024-10-26] MEDS ORDERED: INSULIN GLARGINE (LANTUS) 100 UNIT/ML SYR SQ SCH (21:00)
--- NOTE | 2024-10-26 23:03 | PN ---
PROGRESS NOTE DATE OF SERVICE: 10/26/2024 SUBJECTIVE: This is a 68-year-old gentleman, who was admitted after right hip surgery, also had diabetic ketoacidosis. No chest pain. No palpitation. Awaiting ECF. OBJECTIVE: VITAL SIGNS: Pulse 102, blood pressure 140/90, respirations 15. CHEST: Clear to auscultation. CARDIOVASCULAR: S1, S2. ABDOMEN: Soft. NERVOUS SYSTEM: Mildly weak. LABORATORY DATA: Reviewed. ASSESSMENT: 1. Status post right hip arthroplasty. 2. Diabetic ketoacidosis history. 3. Chronic kidney disease. RECOMMENDATIONS AND DISCUSSION: I recommend to continue current management and continue symptomatic treatment. Monitor blood sugars closely. I would increase the dose of Lantus. PT, OT evaluation. Further recommendations to follow. Possible ECF rehab. NOLAN / EUGENE: [id number] /
[2024-10-27 06:22] LABS: Glucose,Whole Blood 227 mg/dL (70-110)
--- NOTE | 2024-10-27 08:11 | US ---
EXAMINATION TYPE: US renals and bladder DATE OF EXAM: 10/27/2024 Exam done portable COMPARISON: US 2024 CLINICAL INDICATION: Male, 68 years old with history of Hydronephrosis; TECHNIQUE: Grayscale imaging of the bilateral kidneys and urinary bladder: FINDINGS: EXAM MEASUREMENTS: Right Kidney: 12.3 x 6.1 x 7.0 cm Left Kidney: 11.4 x 5.3 x 5.5 cm Right Kidney: hydronephrosis Left Kidney: hydronephrosis Bladder: not fully distended, wayne catheter There is no evidence for hydronephrosis at this point in time. No nephrolithiasis is seen. No ava s are identified. The urinary bladder is anechoic. IMPRESSION: 1. No evidence for structural uropathy. 2. Wayne catheter in place with mild distention of the bladder. Correlate for clamped Wayne catheter . [facility], , 10/27/2024 8:09 AM
[2024-10-27 08:36] LABS: Basophils # (A) 0.05 X 10*3/uL (0.00-0.10); Basophils % (A) 0.6 %; Eosinophils # (A) 0.13 X 10*3/uL (0.04-0.35); Eosinophils % (A) 1.6 %; HCT 23.7 % (39.6-50.0); HGB 7.8 g/dL (13.0-17.0); Lymphocytes # (A) 1.54 X 10*3/uL (0.90-5.00); Lymphocytes % (A) 19.3 %; MCH 28.8 pg (27.0-32.0); MCHC 32.9 g/dL (32.0-37.0); MCV 87.5 FL (80.0-97.0); Mean Platelet Volume 12.5 FL (9.5-12.2); Monocytes # (A) 0.78 X 10*3/uL (0.20-1.00); Monocytes % (A) 9.8 %; NRBC Per 100 WBC 0 X 10*3/uL (0.00-0.01); Neutrophils # (A) 5.42 X 10*3/uL (1.80-7.70); Neutrophils % (A) 67.9 %; Platelet Count 150 X 10*3/uL (140-440); RBC 2.71 X 10*6/uL (4.40-5.60); RDW 14.2 % (11.5-14.5); WBC 7.98 X 10*3/uL (4.50-10.00)
[2024-10-27 08:43] LABS: BUN/Creat Ratio 24.69 Ratio (12.00-20.00); Blood Urea Nitrogen 39.5 mg/dL (9.0-27.0); Calcium 8.2 mg/dL (8.7-10.3); Carbon Dioxide 20.4 mmol/L (21.6-31.8); Chloride 102 mmol/L (96-109); Glucose 228 mg/dL (70-110); Potassium 3.8 mmol/L (3.5-5.5); Sodium 134 mmol/L (135-145)
[2024-10-27] MEDS ORDERED: METOPROLOL SUCCINATE (ER) 25 MG TAB.ER.24H PO SCH (11:00)
[2024-10-27] MEDS: ASPIRIN 81 MG PO SCH (11:05)
--- NOTE | 2024-10-27 11:35 | P.PN ---
Subjective Patient is seen in follow-up for acute kidney injury. Renal function better. Denies chest pain or shortness of breath. Has Bojorquez catheter. Nonoliguric. Vital signs are stable. General: No acute distress. HEENT: Head exam is unremarkable. LUNGS: No audible rhonchi or wheezes. HEART: Rate and Rhythm are regular. ABDOMEN: Nontender. EXTREMITITES: No edema. Objective - Vital Signs Vital signs: Vital Signs Temp 99.3 F 10/27/24 07:15 Pulse 82 10/27/24 07:15 Resp 17 10/27/24 07:15 BP 131/83 10/27/24 07:15 Pulse Ox 97 10/27/24 07:15 FiO2 Intake & Output 10/26/24 10/27/24 10/27/24 18:59 06:59 18:59 Intake Total 750 Output Total 3625 2500 Balance -2875 -2500 Intake: Intake, IV Titration 750 Amount Sodium Chloride 0.9% 1, 750 000 ml @ 125 mls/hr IV . Q8H [facility] Rx#:[id number] Output: Urine 3625 2500 Other: Voiding Method Indwelling Catheter Indwelling Catheter # Bowel Movements 0 - Labs CBC & Chem 7: 10/27/24 02:46 10/27/24 02:46 Labs: Abnormal Lab Results - Last 24 Hours (Table) 10/26/24 10/26/24 10/26/24 Range/Units 02:43 16:25 19:54 RBC (4.40-5.60) X 10*6/uL Hgb (13.0-17.0) g/dL Hct (39.6-50.0) % MPV (9.5-12.2) FL Immature Gran # (0.00-0.04) X 10*3/uL Sodium (135-145) mmol/L Carbon Dioxide (21.6-31.8) mmol/L BUN (9.0-27.0) mg/dL Creatinine (0.6-1.5) mg/dL Est GFR (CKD-EPI) (>=60) BUN/Creatinine Ratio (12.00-20.00) Ratio Glucose (70-110) mg/dL POC Glucose (mg/dL) 295 H 294 H (70-110) mg/dL Calcium (8.7-10.3) mg/dL Iron 19 L (65-175) UG/DL % Saturation 7.45 L (15.00-50.00) Transferrin 182.0 L (204.0-354.0) mg/dL 10/27/24 10/27/24 10/27/24 Range/Units 02:46 02:46 06:21 RBC 2.71 L (4.40-5.60) X 10*6/uL Hgb 7.8 L (13.0-17.0) g/dL Hct 23.7 L (39.6-50.0) % MPV 12.5 H (9.5-12.2) FL Immature Gran # 0.06 H (0.00-0.04) X 10*3/uL Sodium 134 L (135-145) mmol/L Carbon Dioxide 20.4 L (21.6-31.8) mmol/L BUN 39.5 H (9.0-27.0) mg/dL Creatinine 1.6 H (0.6-1.5) mg/dL Est GFR (CKD-EPI) 47 L (>=60) BUN/Creatinine Ratio 24.69 H (12.00-20.00) Ratio Glucose 228 H (70-110) mg/dL POC Glucose (mg/dL) 227 H (70-110) mg/dL Calcium 8.2 L (8.7-10.3) mg/dL Iron (65-175) UG/DL % Saturation (15.00-50.00) Transferrin (204.0-354.0) mg/dL Microbiology - Last 24 Hours (Table) 10/23/24 15:55 Blood Culture - Preliminary Blood 10/25/24 10:07 Gram Stain - Preliminary Other - Other Body Fluid Culture - Preliminary Laurie albicans Assessment and Plan Plan: Assessment: 1. Acute kidney injury secondary to obstructive uropathy. Creatinine peaked at 2.3 this admission and is 1.6 today. 2. Bilateral hydronephrosis. Urology following. Has Bojorquez catheter. No hydronephrosis noted on repeat ultrasound. On Flomax. 3. Status post fall and right femur fracture status post surgical repair October 25, 2024. 4. Diabetes mellitus. 5. Anemia. Postoperative. Iron deficiency noted. Plan: Decrease rate of normal saline to 75 cc an hour. Add IV iron. Encouraged oral intake. Avoid nephrotoxins.
[2024-10-27 11:44] LABS: Glucose,Whole Blood 307 mg/dL (70-110)
[2024-10-27] MEDS: SODIUM FERRIC GLUCONAT-SUCROSE 125 MG in SODIUM CHLORIDE 0.9% 100 ML IVPB SCH (12:04)
[2024-10-27] MEDS: INSULIN LISPRO (HumaLOG) 100 UNIT/ML 10 mL VL SQ SCH (12:05)
[2024-10-27] MEDS: SODIUM CHLORIDE 0.9% 1,000 ML IV SCH (12:05)
--- NOTE | 2024-10-27 12:08 | P.PN ---
Subjective Progress Note Date: 10/27/24 Principal diagnosis: Displaced and comminuted right intertrochanteric femur fracture Patient was evaluated at bedside, he is resting in his hospital bed. Physical therapy was actually in room attempting to ambulate with the patient. He complains of pain with movement of the extremity. He denies headaches, lightheadedness, chest pain or shortness of breath Objective - Vital Signs Vital signs: Vital Signs Temp 99.3 F 10/27/24 07:15 Pulse 82 10/27/24 07:15 Resp 17 10/27/24 07:15 BP 131/83 10/27/24 07:15 Pulse Ox 97 10/27/24 07:15 FiO2 Intake & Output 10/26/24 10/27/24 10/27/24 18:59 06:59 18:59 Intake Total 750 Output Total 3625 2500 Balance -2875 -2500 Intake: Intake, IV Titration 750 Amount Sodium Chloride 0.9% 1, 750 000 ml @ 125 mls/hr IV . Q8H [facility] Rx#:[id number] Output: Urine 3625 2500 Other: Voiding Method Indwelling Catheter Indwelling Catheter # Bowel Movements 0 - Exam Right lower extremity: Incision is clean, dry, and intact. The foam dressings are in good condition. There is minimal soft tissue swelling and ecchymosis surrounding the medial and lateral aspects of the incision. Calf is soft, no tenderness with palpation. Plantar flexion, dorsiflexion, EHL, FHL are intact. Sensory exam to light touch throughout the extremity is intact, dorsal pedis pulses 2+. - Labs CBC & Chem 7: 10/27/24 02:46 10/27/24 02:46 Labs: Abnormal Lab Results - Last 24 Hours (Table) 10/26/24 10/26/24 10/26/24 Range/Units 02:43 16:25 19:54 RBC (4.40-5.60) X 10*6/uL Hgb (13.0-17.0) g/dL Hct (39.6-50.0) % MPV (9.5-12.2) FL Immature Gran # (0.00-0.04) X 10*3/uL Sodium (135-145) mmol/L Carbon Dioxide (21.6-31.8) mmol/L BUN (9.0-27.0) mg/dL Creatinine (0.6-1.5) mg/dL Est GFR (CKD-EPI) (>=60) BUN/Creatinine Ratio (12.00-20.00) Ratio Glucose (70-110) mg/dL POC Glucose (mg/dL) 295 H 294 H (70-110) mg/dL Calcium (8.7-10.3) mg/dL Iron 19 L (65-175) UG/DL % Saturation 7.45 L (15.00-50.00) Transferrin 182.0 L (204.0-354.0) mg/dL 10/27/24 10/27/24 10/27/24 Range/Units 02:46 02:46 06:21 RBC 2.71 L (4.40-5.60) X 10*6/uL Hgb 7.8 L (13.0-17.0) g/dL Hct 23.7 L (39.6-50.0) % MPV 12.5 H (9.5-12.2) FL Immature Gran # 0.06 H (0.00-0.04) X 10*3/uL Sodium 134 L (135-145) mmol/L Carbon Dioxide 20.4 L (21.6-31.8) mmol/L BUN 39.5 H (9.0-27.0) mg/dL Creatinine 1.6 H (0.6-1.5) mg/dL Est GFR (CKD-EPI) 47 L (>=60) BUN/Creatinine Ratio 24.69 H (12.00-20.00) Ratio Glucose 228 H (70-110) mg/dL POC Glucose (mg/dL) 227 H (70-110) mg/dL Calcium 8.2 L (8.7-10.3) mg/dL Iron (65-175) UG/DL % Saturation (15.00-50.00) Transferrin (204.0-354.0) mg/dL 10/27/24 Range/Units 11:43 RBC (4.40-5.60) X 10*6/uL Hgb (13.0-17.0) g/dL Hct (39.6-50.0) % MPV (9.5-12.2) FL Immature Gran # (0.00-0.04) X 10*3/uL Sodium (135-145) mmol/L Carbon Dioxide (21.6-31.8) mmol/L BUN (9.0-27.0) mg/dL Creatinine (0.6-1.5) mg/dL Est GFR (CKD-EPI) (>=60) BUN/Creatinine Ratio (12.00-20.00) Ratio Glucose (70-110) mg/dL POC Glucose (mg/dL) 307 H (70-110) mg/dL Calcium (8.7-10.3) mg/dL Iron (65-175) UG/DL % Saturation (15.00-50.00) Transferrin (204.0-354.0) mg/dL Microbiology - Last 24 Hours (Table) 10/25/24 10:07 Gram Stain - Final Other - Other Body Fluid Culture - Final Laurie albicans 10/23/24 15:55 Blood Culture - Preliminary Blood Assessment and Plan Assessment: Postoperative day #2 status post IM nail right intertrochanteric femur fracture Acute blood loss anemia, expected surgical outcome Displaced right intertrochanteric femur fracture with subtrochanteric extension Right hip osteoarthritis History of left total hip arthroplasty Uncontrolled diabetes Other medical comorbidities Plan: Pain control, oral and IV medication as needed, scheduled stool softeners DVT prophylaxis, continue subcutaneous medication Encourage incentive spirometer Ice and elevate the extremity Ferrous sulfate 325 mg daily for anemia PT/OT recommendations Discharge planning: Patient will need subacute rehab at discharge, stable via the orthopedic standpoint for discharge Time with Patient: Less than 30
[2024-10-27] MEDS ORDERED: INSULIN LISPRO (HumaLOG) 100 UNIT/ML 10 mL VL SQ SCH (12:30)
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
[2024-10-27 16:44] LABS: Glucose,Whole Blood 270 mg/dL (70-110)
--- NOTE | 2024-10-27 17:23 | CDI ---
Documentation Clarification Form Date: 10/24/2024 12:09:00 PM From: Tejal Guerrero RN CCDS Phone: [phone] Admit Date: 10/23/2024 02:56:00 PM Patient Name: Martin Foreman Visit Number: [id number] Discharge Date: ATTENTION: The Clinical Documentation Specialists (CDI) and [facility] Coding Staff appreciate your assistance in clarifying documentation. Please respond to the clarification below the line at the bottom and electronically sign. The CDI & [facility] Coding staff will review the response and follow-up if needed. Please note: Queries are made part of the Legal Health Record. If you have any questions, please contact the author of this message via ITS. Doctor Joey Mascorro A Right hip intertrochanteric fracture is documented, 10/24, HP. Additional clarification regarding the etiology of the fracture is requested. History/Risk Factors: 68 year old male presents to the ED after slipping and having a fall, currently staying at hotel and hasn't had medications in several months. Medical History: DM2, CAD, GERD, HLD, RA and Osteoarthritis. 10/24, HP. Clinical Indications: X-Ray Right Hip and AP Pelvis, 10/23: Comminuted fracture trochanteric fracture of the right hip with extension below the lesser trochanter. Severe degeneration changes with joint space narrowing osteophyte formation and possible cam deformity. Ortho consult, 10/24: Patient demonstrates significant osteoarthritis to the right hip joint, this to include loss of joint space and subchondral sclerosis. Displaced right intertrochanteric femur fracture with subtrochanteric extension, Right hip osteoarthritis. Treatment: Tentatively scheduled for surgical intervention for 10/25/2024, Ortho consult above Please clarify the etiology of the fracture, if known: [ x ] Traumatic [ ] Osteoporosis [ ] Other (please specify): [ ] Unable to determine (Template Last Revised: October 2020) MTDD
[2024-10-27 21:09] LABS: Glucose,Whole Blood 187 mg/dL (70-110)
[2024-10-27] MEDS: ATORVASTATIN 40 MG TAB PO SCH (21:57)
[2024-10-28 06:17] LABS: Glucose,Whole Blood 325 mg/dL (70-110)
[2024-10-28 08:16] LABS: Basophils # (A) 0.05 X 10*3/uL (0.00-0.10); Basophils % (A) 0.7 %; Eosinophils # (A) 0.32 X 10*3/uL (0.04-0.35); Eosinophils % (A) 4.4 %; HCT 23.7 % (39.6-50.0); HGB 7.9 g/dL (13.0-17.0); Lymphocytes # (A) 1.76 X 10*3/uL (0.90-5.00); Lymphocytes % (A) 24.3 %; MCHC 33.3 g/dL (32.0-37.0); MCV 87.1 FL (80.0-97.0); Mean Platelet Volume 12.2 FL (9.5-12.2); Monocytes # (A) 0.69 X 10*3/uL (0.20-1.00); Monocytes % (A) 9.5 %; NRBC Per 100 WBC 0 X 10*3/uL (0.00-0.01); Neutrophils # (A) 4.34 X 10*3/uL (1.80-7.70); Platelet Count 184 X 10*3/uL (140-440); RBC 2.72 X 10*6/uL (4.40-5.60); RDW 14.2 % (11.5-14.5); WBC 7.24 X 10*3/uL (4.50-10.00)
[2024-10-28 08:59] LABS: BUN/Creat Ratio 24.43 Ratio (12.00-20.00); Blood Urea Nitrogen 34.2 mg/dL (9.0-27.0); Calcium 8.2 mg/dL (8.7-10.3); Carbon Dioxide 22.2 mmol/L (21.6-31.8); Chloride 103 mmol/L (96-109); Glucose 225 mg/dL (70-110); Magnesium 1.4 mg/dL (1.5-2.4); Potassium 3.7 mmol/L (3.5-5.5); Sodium 135 mmol/L (135-145)
--- NOTE | 2024-10-28 10:59 | P.PN ---
Subjective Patient is seen in follow-up for acute kidney injury. Renal function better. Denies chest pain or shortness of breath. Has Bojorquez catheter. Nonoliguric. Vital signs are stable. General: No acute distress. HEENT: Head exam is unremarkable. LUNGS: No audible rhonchi or wheezes. HEART: Rate and Rhythm are regular. ABDOMEN: Nontender. EXTREMITITES: No edema. Objective - Vital Signs Vital signs: Vital Signs Temp 98.8 F 10/28/24 08:00 Pulse 85 10/28/24 08:00 Resp 17 10/28/24 08:00 BP 148/84 10/28/24 08:00 Pulse Ox 97 10/28/24 08:00 FiO2 Intake & Output 10/27/24 10/28/24 10/28/24 18:59 06:59 18:59 Intake Total 150 Output Total 1500 1750 Balance -1500 -1750 150 Intake: Oral 150 Output: Urine 1500 1750 Other: Voiding Method Indwelling Catheter Indwelling Catheter # Voids 1 - Labs CBC & Chem 7: 10/28/24 03:30 10/28/24 03:30 Labs: Abnormal Lab Results - Last 24 Hours (Table) 10/27/24 10/27/24 10/27/24 Range/Units 11:43 16:43 21:07 RBC (4.40-5.60) X 10*6/uL Hgb (13.0-17.0) g/dL Hct (39.6-50.0) % Immature Gran # (0.00-0.04) X 10*3/uL BUN (9.0-27.0) mg/dL Est GFR (CKD-EPI) (>=60) BUN/Creatinine Ratio (12.00-20.00) Ratio Glucose (70-110) mg/dL POC Glucose (mg/dL) 307 H 270 H 187 H (70-110) mg/dL Calcium (8.7-10.3) mg/dL Magnesium (1.5-2.4) mg/dL 10/28/24 10/28/24 10/28/24 Range/Units 03:30 03:30 06:12 RBC 2.72 L (4.40-5.60) X 10*6/uL Hgb 7.9 L (13.0-17.0) g/dL Hct 23.7 L (39.6-50.0) % Immature Gran # 0.08 H (0.00-0.04) X 10*3/uL BUN 34.2 H (9.0-27.0) mg/dL Est GFR (CKD-EPI) 55 L (>=60) BUN/Creatinine Ratio 24.43 H (12.00-20.00) Ratio Glucose 225 H (70-110) mg/dL POC Glucose (mg/dL) 325 H (70-110) mg/dL Calcium 8.2 L (8.7-10.3) mg/dL Magnesium 1.4 L (1.5-2.4) mg/dL Microbiology - Last 24 Hours (Table) 10/25/24 10:07 Gram Stain - Final Other - Other Body Fluid Culture - Final Laurie albicans Assessment and Plan Plan: Assessment: 1. Acute kidney injury secondary to obstructive uropathy. Creatinine peaked at 2.3 this admission and is 1.4 today. 2. Bilateral hydronephrosis. Urology following. Has Bojorqeuz catheter. No hydronephrosis noted on repeat ultrasound. On Flomax. 3. Status post fall and right femur fracture status post surgical repair October 25, 2024. 4. Diabetes mellitus. 5. Anemia. Postoperative. Iron deficiency noted. Plan: Maintain IV fluids. Maintain IV iron. Encouraged oral intake. Avoid nephrotoxins.
[2024-10-28] MEDS: MAGNESIUM SULFATE-D5W PMX 1 GM in DEXTROSE/WATER 1 100ML.BAG IVPB SCH (11:07)
--- NOTE | 2024-10-28 11:55 | P.PN ---
Subjective Progress Note Date: 10/28/24 Principal diagnosis: Displaced and comminuted right intertrochanteric femur fracture Patient was evaluated at bedside, he is resting in his hospital bed. Urinary catheter remains in place. He denies headaches, lightheadedness, chest pain or shortness of breath Objective - Vital Signs Vital signs: Vital Signs Temp 98.8 F 10/28/24 08:00 Pulse 85 10/28/24 08:00 Resp 17 10/28/24 08:00 BP 148/84 10/28/24 08:00 Pulse Ox 97 10/28/24 08:00 FiO2 Intake & Output 10/27/24 10/28/24 10/28/24 18:59 06:59 18:59 Intake Total 150 Output Total 1500 1750 Balance -1500 -1750 150 Intake: Oral 150 Output: Urine 1500 1750 Other: Voiding Method Indwelling Catheter Indwelling Catheter # Voids 1 - Exam Right lower extremity: Incision is clean, dry, and intact. The foam dressings are in good condition. There is minimal soft tissue swelling and ecchymosis surrounding the medial and lateral aspects of the incision. Calf is soft, no tenderness with palpation. Plantar flexion, dorsiflexion, EHL, FHL are intact. Sensory exam to light touch throughout the extremity is intact, dorsal pedis pulses 2+. - Labs CBC & Chem 7: 10/28/24 03:30 10/28/24 03:30 Labs: Abnormal Lab Results - Last 24 Hours (Table) 10/27/24 10/27/24 10/28/24 Range/Units 16:43 21:07 03:30 RBC (4.40-5.60) X 10*6/uL Hgb (13.0-17.0) g/dL Hct (39.6-50.0) % Immature Gran # (0.00-0.04) X 10*3/uL BUN 34.2 H (9.0-27.0) mg/dL Est GFR (CKD-EPI) 55 L (>=60) BUN/Creatinine Ratio 24.43 H (12.00-20.00) Ratio Glucose 225 H (70-110) mg/dL POC Glucose (mg/dL) 270 H 187 H (70-110) mg/dL Calcium 8.2 L (8.7-10.3) mg/dL Magnesium 1.4 L (1.5-2.4) mg/dL 10/28/24 10/28/24 Range/Units 03:30 06:12 RBC 2.72 L (4.40-5.60) X 10*6/uL Hgb 7.9 L (13.0-17.0) g/dL Hct 23.7 L (39.6-50.0) % Immature Gran # 0.08 H (0.00-0.04) X 10*3/uL BUN (9.0-27.0) mg/dL Est GFR (CKD-EPI) (>=60) BUN/Creatinine Ratio (12.00-20.00) Ratio Glucose (70-110) mg/dL POC Glucose (mg/dL) 325 H (70-110) mg/dL Calcium (8.7-10.3) mg/dL Magnesium (1.5-2.4) mg/dL Microbiology - Last 24 Hours (Table) 10/25/24 10:07 Gram Stain - Final Other - Other Body Fluid Culture - Final Laurie albicans Assessment and Plan Assessment: Postoperative day #3 status post IM nail right intertrochanteric femur fracture Acute blood loss anemia, expected surgical outcome Displaced right intertrochanteric femur fracture with subtrochanteric extension Right hip osteoarthritis History of left total hip arthroplasty Uncontrolled diabetes Other medical comorbidities Plan: Pain control, continue to decrease the IV medication, oral medication as needed. Stool softeners are also in place. DVT prophylaxis, continue subcutaneous medication Monitor surgical dressing, plan for dressing change 10/29/2024 Encourage incentive spirometer Ice and elevate the extremity Ferrous sulfate 325 mg daily for anemia PT/OT recommendations Discharge planning: Orthopedically patient remains stable for discharge to subacute rehab Time with Patient: Less than 30
[2024-10-28 12:01] LABS: Glucose,Whole Blood 290 mg/dL (70-110)
[2024-10-28 16:36] LABS: Glucose,Whole Blood 314 mg/dL (70-110)
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
[2024-10-28] MEDS: INSULIN LISPRO (HumaLOG) 100 UNIT/ML 10 mL VL SQ SCH (17:20)
[2024-10-28 20:48] LABS: Glucose,Whole Blood 185 mg/dL (70-110)
[2024-10-28] MEDS: INSULIN GLARGINE (LANTUS) 100 UNIT/ML SYR SQ SCH (20:58)
[2024-10-28] MEDS: ACETAMINOPHEN TAB 325 MG TAB PO PRN (20:59)
[2024-10-29] MEDS ORDERED: ZINC OXIDE PASTE (Z-GUARD) 1 APPLIC TOPICAL PRN (03:14)
[2024-10-29 06:11] LABS: Glucose,Whole Blood 161 mg/dL (70-110)
[2024-10-29 07:32] VITALS: RESP 18
[2024-10-29 08:34] LABS: BUN/Creat Ratio 21.07 Ratio (12.00-20.00); Blood Urea Nitrogen 29.5 mg/dL (9.0-27.0); Calcium 8.3 mg/dL (8.7-10.3); Carbon Dioxide 20.4 mmol/L (21.6-31.8); Chloride 104 mmol/L (96-109); Glucose 144 mg/dL (70-110); Magnesium 1.6 mg/dL (1.5-2.4); Potassium 3.6 mmol/L (3.5-5.5); Sodium 138 mmol/L (135-145)
[2024-10-29 09:17] LABS: Basophils # (A) 0.09 X 10*3/uL (0.00-0.10); Eosinophils # (A) 0.42 X 10*3/uL (0.04-0.35); Eosinophils % (A) 4.7 %; HGB 7.9 g/dL (13.0-17.0); Lymphocytes # (A) 1.81 X 10*3/uL (0.90-5.00); Lymphocytes % (A) 20.1 %; MCH 28.3 pg (27.0-32.0); MCHC 31.6 g/dL (32.0-37.0); MCV 89.6 FL (80.0-97.0); Mean Platelet Volume 11.8 FL (9.5-12.2); Monocytes # (A) 0.89 X 10*3/uL (0.20-1.00); Monocytes % (A) 9.9 %; NRBC Per 100 WBC 0 X 10*3/uL (0.00-0.01); Neutrophils # (A) 5.66 X 10*3/uL (1.80-7.70); Neutrophils % (A) 62.9 %; Platelet Count 237 X 10*3/uL (140-440); RBC 2.79 X 10*6/uL (4.40-5.60); RDW 14.3 % (11.5-14.5)
--- NOTE | 2024-10-29 10:32 | P.PN ---
Subjective Patient is seen in follow-up for acute kidney injury. Renal function stable. Denies chest pain or shortness of breath. Bojorquez catheter removed. Has been voiding on his own. Vital signs are stable. General: No acute distress. HEENT: Head exam is unremarkable. LUNGS: No audible rhonchi or wheezes. HEART: Rate and Rhythm are regular. ABDOMEN: Nontender. EXTREMITITES: No edema. Objective - Vital Signs Vital signs: Vital Signs Temp 97.6 F 10/29/24 07:08 Pulse 80 10/29/24 07:08 Resp 18 10/29/24 07:08 BP 162/97 10/29/24 07:08 Pulse Ox 98 10/29/24 07:08 FiO2 Intake & Output 10/28/24 10/29/24 10/29/24 18:59 06:59 18:59 Intake Total 2040 Output Total 1500 Balance 540 Intake: Intake, IV Titration 1050 Amount Magnesium Sulfate-D5w Pmx 200 1 gm In Dextrose/Water 1 100ml.bag @ 100 mls/hr IVPB Q1H [facility] Rx#: [id number] Sodium Chloride 0.9% 1, 750 000 ml @ 75 mls/hr IV . [id number] [facility] Rx#:[id number] Sodium Ferric Gluconat- 100 Sucrose 125 mg In Sodium Chloride 0.9% 100 ml @ 100 mls/hr IVPB DAILY [facility] Rx#:[id number] Oral 990 Output: Urine 1500 Uretheral (Bojorquez) 1500 Other: Voiding Method Indwelling Catheter Urinal Diaper # Voids 1 - Labs CBC & Chem 7: 10/29/24 03:18 10/29/24 03:18 Labs: Abnormal Lab Results - Last 24 Hours (Table) 10/28/24 10/28/24 10/28/24 Range/Units 11:58 16:34 20:47 RBC (4.40-5.60) X 10*6/uL Hgb (13.0-17.0) g/dL Hct (39.6-50.0) % MCHC (32.0-37.0) g/dL Immature Gran # (0.00-0.04) X 10*3/uL Eosinophils # (0.04-0.35) X 10*3/uL Carbon Dioxide (21.6-31.8) mmol/L Anion Gap (4.00-12.00) mmol/L BUN (9.0-27.0) mg/dL Est GFR (CKD-EPI) (>=60) BUN/Creatinine Ratio (12.00-20.00) Ratio Glucose (70-110) mg/dL POC Glucose (mg/dL) 290 H 314 H 185 H (70-110) mg/dL Calcium (8.7-10.3) mg/dL 10/29/24 10/29/24 10/29/24 Range/Units 03:18 03:18 06:10 RBC 2.79 L (4.40-5.60) X 10*6/uL Hgb 7.9 L (13.0-17.0) g/dL Hct 25.0 L (39.6-50.0) % MCHC 31.6 L (32.0-37.0) g/dL Immature Gran # 0.13 H (0.00-0.04) X 10*3/uL Eosinophils # 0.42 H (0.04-0.35) X 10*3/uL Carbon Dioxide 20.4 L (21.6-31.8) mmol/L Anion Gap 13.60 H (4.00-12.00) mmol/L BUN 29.5 H (9.0-27.0) mg/dL Est GFR (CKD-EPI) 55 L (>=60) BUN/Creatinine Ratio 21.07 H (12.00-20.00) Ratio Glucose 144 H (70-110) mg/dL POC Glucose (mg/dL) 161 H (70-110) mg/dL Calcium 8.3 L (8.7-10.3) mg/dL Microbiology - Last 24 Hours (Table) 10/23/24 15:55 Blood Culture - Final Blood Assessment and Plan Plan: Assessment: 1. Acute kidney injury secondary to obstructive uropathy. Creatinine peaked at 2.3 this admission and is stable at 1.4 today. 2. Bilateral hydronephrosis. Urology following. Bojorquez catheter removed. Voiding on his own. No hydronephrosis noted on repeat ultrasound. On Flomax. 3. Status post fall and right femur fracture status post surgical repair October 25, 2024. 4. Diabetes mellitus. 5. Anemia. Postoperative. Iron deficiency noted. Plan: Hep-Lock IV fluids. Maintain IV iron. Encouraged oral intake. Avoid nephrotoxins. Add oral magnesium oxide.
--- NOTE | 2024-10-29 10:38 | P.PN ---
Subjective Progress Note Date: 10/29/24 Principal diagnosis: Displaced and comminuted right intertrochanteric femur fracture Patient was evaluated at bedside, he is resting in his hospital bed. Patient continues to complain of discomfort to the right hip. He is not very motivated to move at this time. He denies headaches, lightheadedness, chest pain or shortness of breath Objective - Vital Signs Vital signs: Vital Signs Temp 97.6 F 10/29/24 07:08 Pulse 80 10/29/24 07:08 Resp 18 10/29/24 07:08 BP 162/97 10/29/24 07:08 Pulse Ox 98 10/29/24 07:08 FiO2 Intake & Output 10/28/24 10/29/24 10/29/24 18:59 06:59 18:59 Intake Total 2040 Output Total 1500 Balance 540 Intake: Intake, IV Titration 1050 Amount Magnesium Sulfate-D5w Pmx 200 1 gm In Dextrose/Water 1 100ml.bag @ 100 mls/hr IVPB Q1H [facility] Rx#: [id number] Sodium Chloride 0.9% 1, 750 000 ml @ 75 mls/hr IV . [id number] [facility] Rx#:[id number] Sodium Ferric Gluconat- 100 Sucrose 125 mg In Sodium Chloride 0.9% 100 ml @ 100 mls/hr IVPB DAILY [facility] Rx#:[id number] Oral 990 Output: Urine 1500 Uretheral (Bojorquez) 1500 Other: Voiding Method Indwelling Catheter Urinal Diaper # Voids 1 - Exam Right lower extremity: Incision is clean, dry, and intact. There is minimal soft tissue swelling and ecchymosis surrounding the medial and lateral aspects of the incision. Calf is soft, no tenderness with palpation. Plantar flexion, dorsiflexion, EHL, FHL are intact. Sensory exam to light touch throughout the extremity is intact, dorsal pedis pulses 2+. - Labs CBC & Chem 7: 10/29/24 03:18 10/29/24 03:18 Labs: Abnormal Lab Results - Last 24 Hours (Table) 10/28/24 10/28/24 10/28/24 Range/Units 11:58 16:34 20:47 RBC (4.40-5.60) X 10*6/uL Hgb (13.0-17.0) g/dL Hct (39.6-50.0) % MCHC (32.0-37.0) g/dL Immature Gran # (0.00-0.04) X 10*3/uL Eosinophils # (0.04-0.35) X 10*3/uL Carbon Dioxide (21.6-31.8) mmol/L Anion Gap (4.00-12.00) mmol/L BUN (9.0-27.0) mg/dL Est GFR (CKD-EPI) (>=60) BUN/Creatinine Ratio (12.00-20.00) Ratio Glucose (70-110) mg/dL POC Glucose (mg/dL) 290 H 314 H 185 H (70-110) mg/dL Calcium (8.7-10.3) mg/dL 10/29/24 10/29/24 10/29/24 Range/Units 03:18 03:18 06:10 RBC 2.79 L (4.40-5.60) X 10*6/uL Hgb 7.9 L (13.0-17.0) g/dL Hct 25.0 L (39.6-50.0) % MCHC 31.6 L (32.0-37.0) g/dL Immature Gran # 0.13 H (0.00-0.04) X 10*3/uL Eosinophils # 0.42 H (0.04-0.35) X 10*3/uL Carbon Dioxide 20.4 L (21.6-31.8) mmol/L Anion Gap 13.60 H (4.00-12.00) mmol/L BUN 29.5 H (9.0-27.0) mg/dL Est GFR (CKD-EPI) 55 L (>=60) BUN/Creatinine Ratio 21.07 H (12.00-20.00) Ratio Glucose 144 H (70-110) mg/dL POC Glucose (mg/dL) 161 H (70-110) mg/dL Calcium 8.3 L (8.7-10.3) mg/dL Microbiology - Last 24 Hours (Table) 10/23/24 15:55 Blood Culture - Final Blood Assessment and Plan Assessment: Postoperative day #4 status post IM nail right intertrochanteric femur fracture Acute blood loss anemia, expected surgical outcome Displaced right intertrochanteric femur fracture with subtrochanteric extension Right hip osteoarthritis History of left total hip arthroplasty Uncontrolled diabetes Other medical comorbidities Plan: Pain control, oral medications as needed. Stool softeners are on board DVT prophylaxis, continue subcutaneous medication Had a long discussion today with nursing the need to have patient up and base/showered. His hygiene is very poor at this time which was his baseline when he came into the hospital. New dressings can be applied to the incisions on the right leg after shower Discussed with patient at length today the need to get up and move to help prevent bedsores, blood clots and worsening medical state Encourage incentive spirometer Ice and elevate the extremity Ferrous sulfate 325 mg daily for anemia PT/OT recommendations Discharge planning: Orthopedically patient remains stable for discharge to subacute rehab, awaiting authorization Time with Patient: Less than 30
[2024-10-29] MEDS: MAGNESIUM OXIDE 400 MG TAB PO SCH (11:01)
[2024-10-29 12:13] LABS: Glucose,Whole Blood 167 mg/dL (70-110)
[2024-10-29] MEDS: FERROUS SULFATE 325 MG TAB PO SCH (12:38)
[2024-10-29 14:20] VITALS: BP 135/70; PULSE 84
[2024-10-29 14:24] VITALS: TEMP 98.4
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
== END 2024-10-29 17:35 | DRG 480 ==
LOC: EC 12:43 → 3SCARD 14:56 → 4SSUR 10-24 10:40
PROVIDERS: ADMIT Hospitalist; ATTEND Hospitalist
PROC: 0QS636Z Reposition Right Upper Femur with Intramedullary Internal Fixation Device, Percutaneous Approach (ICD-10-PCS; principal; 2024-10-25 09:05)
DX: S72.141A Displaced intertrochanteric fracture of right femur, initial encounter for closed fracture (principal); E11.10 Type 2 diabetes mellitus with ketoacidosis without coma; N17.9 Acute kidney failure, unspecified; N13.6 Pyonephrosis; Z59.01 Sheltered homelessness; D62 Acute posthemorrhagic anemia; E11.22 Type 2 diabetes mellitus with diabetic chronic kidney disease; D50.9 Iron deficiency anemia, unspecified; M06.9 Rheumatoid arthritis, unspecified; N18.9 Chronic kidney disease, unspecified; F32.A Depression, unspecified; I12.9 Hypertensive chronic kidney disease with stage 1 through stage 4 chronic kidney disease, or unspecified chronic kidney disease; L40.50 Arthropathic psoriasis, unspecified; E78.5 Hyperlipidemia, unspecified; M16.11 Unilateral primary osteoarthritis, right hip; I25.10 Atherosclerotic heart disease of native coronary artery without angina pectoris; K21.9 Gastro-esophageal reflux disease without esophagitis; N40.1 Benign prostatic hyperplasia with lower urinary tract symptoms; R39.12 Poor urinary stream; R31.9 Hematuria, unspecified; R80.9 Proteinuria, unspecified; R35.1 Nocturia; Z87.440 Personal history of urinary (tract) infections; Z87.891 Personal history of nicotine dependence; Z95.1 Presence of aortocoronary bypass graft; Z95.5 Presence of coronary angioplasty implant and graft; Z96.642 Presence of left artificial hip joint; W01.0XXA Fall on same level from slipping, tripping and stumbling without subsequent striking against object, initial encounter; Y92.59 Other trade areas as the place of occurrence of the external cause; Z88.2 Allergy status to sulfonamides
CPT/HCPCS: 36415; 71045; 73502; 76770; 80048; 80051; 80053; 80061; 81001; 82009; 82550; 82803; 83036; 83540; 83550; 83605; 83735; 85025; 87040; 87070; 87075; 87086; 87205; 96361; 96365; 96366; 96367; 96375; 96376; 99285